=== PATIENT | female | born 1935 | race Caucasian/White ===

== ENCOUNTER 2018-05-09 13:07 | Inpatient (IN) | payer MEDICARE ==
[~2018-05-09] VITALS: Ht 152.4 cm; Wt 74.8 kg
[2018-05-09] VITALS (14 sets, daily range): BP systolic 130–148; BP diastolic 38–60
[2018-05-09] MEDS ORDERED: METFORMIN HCL500 MG PO (13:20)
[2018-05-09] MEDS ORDERED: OXAZEPAM 10MG C10 M1 PO (13:20)
[2018-05-09] MEDS ORDERED: SYNTHROID100 MC1 PO (13:20)
[2018-05-09] MEDS ORDERED: TRAZODONE HCL50 MG PO (13:21)
[2018-05-09] MEDS ORDERED: SIMVASTATIN40 MG PO (13:21)
[2018-05-09 13:33] LABS: HEMATOCRIT 20.1 % (37.0-47.0); MCH 27.8 pg (26.0-34.0); MCHC 33.4 g/dL (28.0-37.0); MCV 83.4 fL (80.0-100.0); MPV 6.5 fl. (7.2-11.1); NUCLEATED RBCS 0 /100WBC; PLATELET COUNT* 137 thou/uL (150-400); RBC 2.41 mil/uL (4.20-5.00); RDW-CV 19.6 % (10.5-14.5); WBC 9.9 thou/uL (4.0-11.0)
[2018-05-09 13:37] LABS: HEMOGLOBIN 6.7 gm/dL (12.0-15.0)
[2018-05-09 13:39] LABS: APTT 23.7 Seconds (25.0-31.3); INR 1.2
[2018-05-09 13:49] LABS: CALCIUM 9.9 mg/dL (8.5-10.1); CREATININE 22.1 mg/dL (0.6-1.3); POTASSIUM 5.9 mmol/L (3.5-5.1)
[2018-05-09 13:54] LABS: ALBUMIN 2.6 g/dL (3.4-5.0); TOTAL BILIRUBIN 0.4 mg/dL (<0.1-1.0); TOTAL PROTEIN 11.4 g/dL (6.4-8.2); TROPONIN-I LEVEL 0.13 ng/mL (<0.06)
[2018-05-09 14:08] LABS: ABSOLUTE EOSINOPHILS 0.4 thou/uL (0.0-0.7); ABSOLUTE LYMPHOCYTES 6.3 thou/uL (0.8-5.3); ABSOLUTE MONOCYTES 0.6 thou/uL (0.0-1.2); ABSOLUTE NEUTROPHILS 2.6 thou/uL (1.6-8.1); ATYPICAL LYMPHS 1 %
[2018-05-09 14:09] LABS: PLATELET ESTIMATE DECREASED
[2018-05-09 14:10] LABS: ANISOCYTOSIS 1+
--- NOTE | 2018-05-09 14:22 | NUR ---
CONSENT SIGNED FOR CENTRAL LINE
[2018-05-09 15:20] LABS: ACETAMINOPHEN < 2 ug/mL (10-30); SALICYLATE 4.3 mg/dL (2.8-20.0)
[2018-05-09 16:14] LABS: URINE BILIRUBIN NEGATIVE (Negative); URINE BLOOD 1+ (Negative); URINE CLARITY CLEAR; URINE COLOR YELLOW; URINE GLUCOSE-RANDOM NEGATIVE (Negative); URINE KETONES NEGATIVE (Negative); URINE LEUKOCYTES-REFLEX NEGATIVE (Negative); URINE NITRITE-REFLEX NEGATIVE (Negative); URINE PROTEIN 2+ (Negative); URINE UROBILINOGEN 0.2 E.U./dl (0.2-1.0)
[2018-05-09 16:21] LABS: AMP/METHAMP Negative (Negative); BARBITURATES Negative (Negative); BENZODIAZEPINES Negative (Negative); COCAINE Negative (Negative); METHADONE Negative (Negative); OPIATES Negative (Negative); PCP Negative (Negative); SQUAMOUS 0-3 Few /LPF (0-3); THC Negative (Negative); URINE RBC 3-10 Few /HPF (0-2); URINE WBC-REFLEX 0-5 Rare /HPF (0-5)
[2018-05-09 16:24] LABS: BACTERIA-REFLEX 1-9 Few /HPF (None Seen); MUCUS None Seen strn/LPF (None Seen)
[2018-05-09 16:25] LABS: AMORPHOUS URATES Many /LPF (None Seen); CASTS None Seen /LPF (None Seen); CRYSTALS None Seen /LPF (None Seen)
[2018-05-09 17:19] LABS: HEMATOCRIT 16.8 % (37.0-47.0); HEMOGLOBIN 5.6 gm/dL (12.0-15.0)
[2018-05-09 17:23] LABS: CALCIUM 8.5 mg/dL (8.5-10.1); MAGNESIUM 2.5 mg/dL (1.8-2.4); PHOSPHORUS* 9.3 mg/dL (2.5-4.9); POTASSIUM 5.5 mmol/L (3.5-5.1)
[2018-05-09 17:29] LABS: CREATININE 19.9 mg/dL (0.6-1.3)
[2018-05-09 18:25] LABS: BE -15.8 mmol/L (-2 to +3); PCO2 28.1 mmHg (35.0-45.0); PO2 107.3 mmHg (75.0-100.0)
[2018-05-09 18:28] LABS: pH 7.202 (7.340-7.450)
[2018-05-09 18:29] LABS: HCO3 10.8 mmol/L (22.0-26.0)
--- NOTE | 2018-05-09 19:42 | NUR ---
PATIENT ADMITTED TO THE UNIT AT 1615. PATIENT AOX4, PLEASANT, COOEPRATIVE. ABLE TO UNDERSTAND AND PARTICIPATE IN CARE PLAN. PATIENT LIVES AT HOME ALONE AND HAS BEEN PROGRESSIVELY WEAKER IN THE LAST TWO WEEKS. PATIENT STATES SHE ATTEMPTED TO USE A CANE AT ONE POINT, BUT WAS UNABLE TO AMBULATE AND HAS FALLEN. STATES THAT SHE HAS BEEN NAUSATED AND HAS HAD DRY HEAVES. STATES SHE WAS UNABLE TO REACH FOOD OR DRINK. PATIENT KIDNEY FUNCTION POOR AT THIS TIME. CREAT 22.1 UPON ARRIVAL, ON LAST CHECK 19.2. LIPASE ALSO ELEVATED. 2L NS BOLUS GIVEN IN THE ER BEFORE RECHECK. DR BARAKAT NOTIFIED WHO ORDERED NS @50 ML/HR AND STERILE WATER WITH 3 AMPS OF BICARB @ 100ML/HR. HE ORDERED REPEAT LABS FOR 2100 AND STATED HE WILL CALL NURSING. BLOOD CONSENT OBTAINED. INFUSING AT THIS TIME FOR HGB OF 5.4 ON LAST CHECK. PATIENT HAS RIGHT IJ CENTRAL LINE. DRESSING SATURATED UPON ARRIVAL TO THE FLOOR. REPLACED DRESSING AND UTILIZED GEL FOAM, HELD PRESSURE FOR 5 MINUTES. APPEARED TO BE DRY, BUT STILL BLEEDING AT THIS TIME, GAUZE IN PLACE. FAST FOOD FRY COOK NOTIFIED. PATIENT'S DPOA (YOU) WHO IS A FRIEND WILL BE OUT OF TOWN THIS WEEK, BUT STATED NURSING CAN CALL HER IF REQUIRED. UPDATED ON PLAN OF CARE. PATIENT AND DPOA AGREEABLE TO PLAN OF CARE AND ALL QUESTIONS WERE ANSWERED.
[2018-05-09 22:38] LABS: HEMATOCRIT 20.1 % (37.0-47.0)
[2018-05-09 22:50] LABS: HEMOGLOBIN 6.7 gm/dL (12.0-15.0)
[2018-05-09 22:55] LABS: CALCIUM 8.6 mg/dL (8.5-10.1); CREATININE 19.6 mg/dL (0.6-1.3); MAGNESIUM 2.6 mg/dL (1.8-2.4); PHOSPHORUS* 9.1 mg/dL (2.5-4.9); POTASSIUM 5.8 mmol/L (3.5-5.1)
[2018-05-10] VITALS (23 sets, daily range): BP systolic 108–148; BP diastolic 35–58
--- NOTE | 2018-05-10 | NUR ---
CALL RECEIVED FROM DR OWENS, ALL LABS REPORTED TO HIM. PER HIS REQUEST SPOKE TO PT ABOUT POSSIBILITY OF DIALYSIS CATHETER PLACEMENT AND STARTING DIALYSIS. PT STATES SHE IS IN AGREEMENT WITH THIS PLAN. THIS WAS REPORTED TO DR OWENS, ORDER RECEIVED TO CONSULT IR FOR TEMP DIALYSIS CATH PLACEMENT FIRST THING IN AM. 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 RECORD REQUEST FAXED TO HIS OFFICE.
[2018-05-10 03:59] LABS: ABSOLUTE EOSINOPHILS 0.1 thou/uL (0.0-0.7); ABSOLUTE LYMPHOCYTES 5.1 thou/uL (0.8-5.3); ABSOLUTE MONOCYTES 0.3 thou/uL (0.0-1.2); ABSOLUTE NEUTROPHILS 2.7 thou/uL (1.6-8.1); BASOPHILS 0.4 %; EOSINOPHILS 0.7 %; HEMATOCRIT 21.5 % (37.0-47.0); HEMOGLOBIN 7.3 gm/dL (12.0-15.0); LYMPHOCYTES 61.8 %; MCH 28.5 pg (26.0-34.0); MCHC 33.7 g/dL (28.0-37.0); MCV 84.4 fL (80.0-100.0); MPV 6.4 fl. (7.2-11.1); NUCLEATED RBCS 0 /100WBC; PLATELET COUNT* 99 thou/uL (150-400); POLYS 33.1 %; RBC 2.55 mil/uL (4.20-5.00); RDW-CV 17.7 % (10.5-14.5); WBC 8.2 thou/uL (4.0-11.0)
[2018-05-10 04:15] LABS: CREATININE 18.8 mg/dL (0.6-1.3); POTASSIUM 5.3 mmol/L (3.5-5.1); TOTAL BILIRUBIN 0.5 mg/dL (<0.1-1.0); TOTAL PROTEIN 8.6 g/dL (6.4-8.2)
--- NOTE | 2018-05-10 06:37 | NUR ---
PATIENT RECIEVED 2 UNITS OF BLOOD THIS SHIFT, TOLERATED WELL. HAD BOWEL MOVEMENT X2. FIRST BOWEL MOVEMENT WAS LARGE, SEMI-LIQUID AND BLACK. SECOND BOWEL MOVEMENT WAS MODERATE IN AMOUNT, LOOSE AND DARK BROWN. FOUL SMELL NOTED IN BOTH BMs. PATIENT HAD BROTH AND APPLE JUICE, TOLERATED WELL. WAS ABLE TO SIT IN CHAIR FOR 10-15 MINS X2. ABLE TO GET SOME SLEEP THROUGHOUT THE NIGHT. PATIENT REFUSED Q2 TURNS AND REPORTED SHE IS COMFORTABLE LAYING ON HER BACK. SCDs TAKEN OFF PER PATIENT REQUEST WELL. VITALS STABLE, CALL LIGHT IN REACH.
--- NOTE | 2018-05-10 11:13 | NUR ---
Pt getting temporary dialysis cath placed earlier when tried to assess, will see later.
--- NOTE | 2018-05-10 13:38 | EKG ---
[place] [address] ELECTROCARDIOGRAM REPORT Name: GLENN GONZALES Room: [address] ADM IN .R.#: [id number] Admission: 05/09/18 Attend Phys: Sunil Vega MD Discharge: Date of : 37 Report #: [id number] THIS REPORT FOR: //name// [facility] ED Test Date: 2018-05-09 Test Time: 14:03:46 Pat Name: GLENN CHRISTIAN Department: Room: [facility] Gender: F Alterations Workroom Clerk: JS STUDENT EMS : 1935 Requested By: Jose E Castrejon Order Number: [id number] MD: Garett Vallejo Measurements Intervals [place] Rate: 68 P: 58 NC: 119 QRS: 3 QRSD: 103 T: 59 QT: 394 QTc: 420 Interpretive Statements Sinus rhythm Borderline short NC interval No previous ECG available for comparison Electronically Signed On 05-10-2018 13:37:57 INFORMATION TECHNOLOGY TECHNICIAN by Garett Vallejo [email or web address] <ELECTRONICALLY SIGNED> By: Garett Vallejo MD, [facility] 05/10/18 1337 D: 12/1402 02 Garett Vallejo MD, FACC /EPI
--- NOTE | 2018-05-10 16:35 | NUR ---
ATTENTION CASE MANAGEMENT: PT EXPRESSED INTREST IN LEARNING OF COMMUNITY RESOURCES WHERE SHE CAN MEET FRIENDS. PT REPORTS SHE LIVED WITH A FREIND FOR SEVERAL YEARS WHO 2 YEARS AGO AND PT FEELS LONELY.
--- NOTE | 2018-05-10 18:52 | NUR ---
PT CONSENTED TO TEMPORARY DIALYSIS CATHETER. PT HAD DIALYSIS TODAY. VSS. AFEBRILE. PT UP TO BSC 2 TIMES. SMALL BM. PT SAT IN RECLINER THIS SHIFT.
[2018-05-10 19:06] LABS: COMPLEMENT-C4 30 mg/dL (14-44); IgA 89 mg/dL (64-422); IgG 1186 mg/dL (700-1600)
[2018-05-10 21:09] LABS: IgM 4708 mg/dL (26-217)
[2018-05-11] VITALS (20 sets, daily range): BP systolic 99–138; BP diastolic 37–61
[2018-05-11 03:44] LABS: ABSOLUTE EOSINOPHILS 0.1 thou/uL (0.0-0.7); ABSOLUTE LYMPHOCYTES 3.8 thou/uL (0.8-5.3); ABSOLUTE MONOCYTES 0.4 thou/uL (0.0-1.2); ABSOLUTE NEUTROPHILS 2.4 thou/uL (1.6-8.1); BASOPHILS 0.3 %; EOSINOPHILS 0.9 %; LYMPHOCYTES 57.9 %; MCH 28.5 pg (26.0-34.0); MCHC 34.7 g/dL (28.0-37.0); MCV 82.1 fL (80.0-100.0); MONOCYTES 5.3 %; MPV 6.4 fl. (7.2-11.1); NUCLEATED RBCS 0 /100WBC; PLATELET COUNT* 85 thou/uL (150-400); POLYS 35.6 %; RBC 2.32 mil/uL (4.20-5.00); RDW-CV 17.7 % (10.5-14.5); WBC 6.6 thou/uL (4.0-11.0)
[2018-05-11 04:07] LABS: ALBUMIN 1.7 g/dL (3.4-5.0); CALCIUM 7.5 mg/dL (8.5-10.1); MAGNESIUM 1.6 mg/dL (1.8-2.4); PHOSPHORUS* 3.9 mg/dL (2.5-4.9); TOTAL BILIRUBIN 0.3 mg/dL (<0.1-1.0); TOTAL PROTEIN 7.6 g/dL (6.4-8.2)
[2018-05-11 04:13] LABS: CREATININE 10.5 mg/dL (0.6-1.3); POTASSIUM 4.2 mmol/L (3.5-5.1)
[2018-05-11 04:15] LABS: HEMOGLOBIN 6.6 gm/dL (12.0-15.0)
--- NOTE | 2018-05-11 08:09 | NUR ---
PT IS ABLE TO COMMUNICATE HER NEEDS TO STAFF EFFECTIVELY. SHE HAS DENIED THE NEED FOR PAIN MEDICATION UP TO THIS TIME. SERA IS PATENT. PT DID RECEIVE HEMODIALYSIS YESTERDAY. PT RECEIVING BLOOD THIS AM.
[2018-05-11 11:25] LABS: HEMATOCRIT 24.3 % (37.0-47.0); HEMOGLOBIN 8.4 gm/dL (12.0-15.0)
--- NOTE | 2018-05-11 12:25 | CON ---
[address] [address] CONSULTATION Name: GLENN GONZALES Room: [address] IN M.R.#: [id number] Admission: 05/09/18 Attend Phys: Sunil Veag MD Discharge: Date of : 36 Report #: [id number] THIS REPORT FOR: //name// CC: Valdez Vega The patient is at [facility] ICU bed 8. REASON FOR CONSULTATION: I am asked to see this 82-year-old female at the request of Dr. Barber for acute kidney injury. CHIEF COMPLAINT: Generalized weakness and dizziness. HISTORY OF PRESENT ILLNESS: The patient has had 2-3 weeks of nausea and vomiting and constipation and decreased urine output. She presented to the ED, was found to have severe laboratory abnormalities with a BUN as high as 214, a creatinine of 22, a hemoglobin of 6.7 and was subsequently admitted. PAST MEDICAL HISTORY: The patient reports that she has been told she has "blood cancer." She chose not to investigate this further. She does not know the details. She was seen by Oncology at [facility]. She stopped taking all of her medications a few months back. She says now she made a mistake, she should have pursued this and found out exactly what was wrong and pursue treatment. PAST MEDICAL HISTORY: Positive for hypothyroidism, prediabetes, insomnia. Non-Hodgkin lymphoma. She has had a right lumpectomy, cholecystectomy and tonsillectomy. FAMILY HISTORY: No renal diseases. No pertinent family history at her age of 82. SOCIAL HISTORY: She does not use tobacco, no alcohol, no recreational drugs. She has an advance directive and wishes to be a DNR. ALLERGIES: Not known to any medications. HOME MEDICATIONS: She was not taking anything. She said she stopped her meds few months ago. REVIEW OF SYSTEMS: HEENT: No recent changes in vision or hearing. CARDIAC: Denies any chest pain. PULMONARY: Denies shortness of air. GASTROINTESTINAL: She has had nausea and vomiting. She has had decreased intake. She has had constipation. GENITOURINARY: She has acute kidney injury and decreased urine output. HEMATOLOGIC AND LYMPHATIC:: History of non-Hodgkin lymphoma, [place] [address] CONSULTATION Name: GONZALESGLENN Yovanny Room: [address]#: [id number] Admission: 05/09/18 Attend Phys: Sunil Vega MD Discharge: Date of : 36 Report #: [id number] history of breast cancer. She has had a lumpectomy, but I do not know if this was malignant or not. She has the new onset of "blood cancer." She is very anemic. Her other hematologic findings indicate normal white cells and platelets of 99,000. MUSCULOSKELETAL: Weakness. ENDOCRINE: Prediabetes, not hypothyroid. PSYCHIATRIC: Negative. NEUROLOGIC: No TIA, CVA, Parkinson disease or seizure disorder. Other 14-point review of systems is as above. PHYSICAL EXAMINATION: GENERAL: She is awake, alert, hungry. She has responded well to fluids and that her BUN and creatinine are still quite high, have come down from 214-182 since yesterday, and her creatinine has come down from 22-18.8. In addition, she has put out about 1200 mL of urine output. HEENT: Atraumatic, normocephalic. Pupils do react to light. Her conjunctivae are quite pale. NECK: Supple. CHEST: Generally clear. HEART: S1, S2, no rubs. ABDOMEN: Soft, positive bowel sounds. EXTREMITIES: Show no edema. She has 2+ femoral pulses distally. Extremities perfused. NEUROLOGIC: Cranial nerves, sensory, motor appear to be at her baseline. LABORATORY DATA: At present shows the above-mentioned renal findings. Her blood pressure is much better and stable at 120/44 to 145/53. Her potassium is 5.3, sodium 133, CO2 17, anion gap 18, glucose 132. Liver functions are not increased. White count 8200, hemoglobin up to 7.3, hematocrit 21.5. She has had a chest x-ray that shows no acute cardiopulmonary process. She has had a CT scan of the head that also shows no acute process and renal ultrasound shows normal-sized kidneys with diffuse increased renal parenchyma echogenicity and no hydronephrosis. IMPRESSION: 1. Acute kidney injury, not certain of this cause. She was quite volume depleted on admission, though this seems an excessive response to that. She does not appear to have been hypotensive. I do not know if she has any malignant infiltration of her kidneys versus acute tubular necrosis versus acute interstitial nephritis versus some glomerular process. 2. Uremia secondary to above. 3. Profound anemia. 4. Thrombocytopenia. 5. Generalized weakness, likely related to abnormal laboratories as well. 6. Questionable new diagnosis of "blood cancer," need more details on this. 7. History of prior non-Hodgkin lymphoma. I do not know how long ago. [address] [address] CONSULTATION Name: GLENN GONZALES Room: [address] IN M.Antonio.#: [id number] Admission: 05/09/18 Attend Phys: Sunil Vega MD Discharge: Date of : 36 Report #: [id number] 8. Hypothyroidism. 9. "Prediabetes." 10. Constipation. 11. Recent nausea and vomiting. PLAN: She has been placed for dialysis by Dr. Nawaf bellamy [email or web address]. She will have a 2-hour treatment. Meanwhile, we will begin investigations as to possible cause of acute renal failure. Orders are written. We will follow with you. <ELECTRONICALLY SIGNED> By: Desiree Hartman MD 05/11/18 1225 1202 [id number] Hartman MD /nt
[2018-05-11 13:19] LABS: SMEAR FOR EOSINOPHILS No Eosinophils Seen
[2018-05-12] VITALS (8 sets, daily range): BP systolic 100–132; BP diastolic 31–64
[2018-05-12 05:52] LABS: HEMATOCRIT 22.3 % (37.0-47.0); HEMOGLOBIN 7.7 gm/dL (12.0-15.0); MCH 29.1 pg (26.0-34.0); MCHC 34.6 g/dL (28.0-37.0); MPV 6.8 fl. (7.2-11.1); NUCLEATED RBCS 0 /100WBC; PLATELET COUNT* 80 thou/uL (150-400); RBC 2.65 mil/uL (4.20-5.00); RDW-CV 17.2 % (10.5-14.5); WBC 6.8 thou/uL (4.0-11.0)
[2018-05-12 05:58] LABS: ALBUMIN 1.6 g/dL (3.4-5.0); CALCIUM 8.1 mg/dL (8.5-10.1); CREATININE 10.8 mg/dL (0.6-1.3); MAGNESIUM 1.6 mg/dL (1.8-2.4); PHOSPHORUS* 4.3 mg/dL (2.5-4.9); POTASSIUM 4.2 mmol/L (3.5-5.1); TOTAL BILIRUBIN 0.3 mg/dL (<0.1-1.0); TOTAL PROTEIN 7.6 g/dL (6.4-8.2)
--- NOTE | 2018-05-12 06:32 | NUR ---
progressing towards goals. vss. plan for bone biopsy today. tele status.
--- NOTE | 2018-05-12 09:04 | NUR ---
MAGNESIUM 1.6 THIS AM. ASKED NEPHROLOGY IF THEY WOULD LIKE IT REPLACED. PER NEPHROLOGY "LEAVE IT ALONE". FLUIDS CHANGED PER NEPHROLOGY, ORDERS FOLLOWED. PT A/O X'S 4. VSS. AFEBRILE. PT TO HAVE BONE MARROW BIOPSY AND DIALYSIS TODAY. WILL CONTINUE PLAN OF CARE.
[2018-05-12 09:29] LABS: ABSOLUTE LYMPHOCYTES 4.2 thou/uL (0.8-5.3); ABSOLUTE MONOCYTES 0.5 thou/uL (0.0-1.2); PLATELET ESTIMATE DECREASED
[2018-05-12 11:08] LABS: ANTI-DNA SCREEN 2 IU/mL (0-9); ANTI-RNP 0.2 AI (0.0-0.9)
--- NOTE | 2018-05-12 11:10 | NUR ---
CHART REVIEWED, SPOKE WITH PT. PT ALERT AND ORIENTED AND ABLE TO ANSWER ALL QUESTIONS. PT LIVES ALONE, SHE SAID UP UNTIL ABOUT A MONTH AGO SHE HAD SOMEONE COME IN ONCE A WEEK TO HELP WITH CLEANING, COOKING, ETC. SHE SAID SHE HAS FELT SO POORLY THE LAST MONTH THAT SHE WAS JUST EATING LIGHT FOODS THAT WERE AVAILABLE. SHE SAID SHE HAS NO FAMILY HERE IN THE AREA, SHE HAD A GOOD FRIEND NAHID MURPHY ([phone]) WHO HELPS HER, SHE INITIALLY SAID NAHID WAS HER DPOA, AND THE ONE SHE WOULD WANT TO MAKE HEALTHCARE DECISIONS FOR HER. COPY OF DPOA FROM 2017 ON OLD CHART, IT NAMES OKSANA PRETTYON AND SHAY JERONIMOSARAH HER AGENTS. DISCUSSED WITH PT, SHE SAID OKSANA CONDE IS HER CHEMICAL PLANT MANAGER AND SHAY MIX IS HER SISTER IN [place], [place]. ASKED HER IF SHE WANTED TO COMPLETE A NEW ADVANCE DIRECTIVE NAMING NAHID MURPHY, SHE SAID NOT RIGHT NOW, SHE WANTS TO LEAVE IT OKSANA CONDE HER DPOA. SHE DOES NOT KNOW HIS PHONE NUMBER AND I WAS UNABLE TO LOCATE A PHONE NUMBER FOR HIM. COPY OF ADVANCE DIRECTIVE ON CURRENT CHART. DISCUSSED ROLE OF CASE MGT, BRIEFLY DISCUSSED DISCHARGE OPTIONS, UNSURE WHAT PT WILL NEED AT DISCHARGE AT THIS TIME. PT HAD HEMODIALYSIS ON THURSDAY AND WILL HAVE AGAIN TODAY. PT SCHEDULED FOR BONE MARROW BIOPSY TODAY. CASE MGT TO CONTINUE TO FOLLOW.
--- NOTE | 2018-05-12 14:55 | NUR ---
PT STATED SHE WAS RECEIVING HOME HEALTH WEEKLY AND ASKED THAT THEY BE CONTACTED AND NOTIFIED SHE IS IN HOSPITAL. PT UNABLE TO RECALL NAME OF HOME HEALTH AGENCY. PT REPORTS HER FRIEND NAHID MURPHY [phone] WOULD KNOW NAME OF HOME HEALTH AGENCY. CASE MANAGEMENT NOTIFIED. PT REPORTS SHE DOES NOT HAVE HER GARAGE PRAKASH, HER FRIEND NAHID MURPHY HAS IT, AND SHE IS CONCERNED ABOUT HOW TO GET IN HER HOME UPON DISCHARGE. NAHID KATHERINE CALLED AND VOICE MESSAGE LEFT ABOUT CONCERN.
--- NOTE | 2018-05-12 15:52 | NUR ---
PT'S SISTER IS PATRIA MORGAN. PHONE NUMBER IS [phone].
[2018-05-12 16:09] LABS: IgA 81 mg/dL (64-422); IgG 1008 mg/dL (700-1600)
--- NOTE | 2018-05-12 17:05 | NUR ---
PT'S HUNTING SALES ASSOCIATE CRESENCIO NOTIFIED PT TRANSFERED TO ROOM 210. PT GIVEN PRN ZOFRAN PRIOR TO TRANSFER. PT ALSO GIVEN PRN TYLENOL FOR HEADACHE AND SCHEDULED ATIVAN FOR CIWA OF 7. PT IN TEARS AT TIMES.
--- NOTE | 2018-05-12 17:50 | NUR ---
PT C/O OF NAUSEA. PRN ZOFRAN ADMININSTERED PER JUL. PT REPORTS SHE USES A HOME HEALTH AGENCY ONCE A WEEK AND WOULD LIKE THEM NOTIFIED THAT SHE IS IN HOSPITAL. PT UNSURE OF AGENCY NAME. YOU REPORTS SHE BELIEVES SHE IS FROM AN INDEPENDENT [employer]. YOU STATED SHE WILL BE HERE ON 05/13/18 AND GIVE NUMBER. PT CONCERNED ABOUT HOME KEYS AND STATED YOU HAS KEYS. PER YOU, " I'M WORRIED ABOUT HER AND WONDERING IF SHE IS FORGETFUL. BECAUSE SHE TOLD ME TO LEAVE HER KEYS IN HER CAR AND LEAVE HER FRONT DOOR UNLOCKED." "HER KEYS ARE IN THE IGNITION TO HER CAR AND THE CAR IS UNLOCKED".
[2018-05-12 21:06] LABS: IgM 4282 mg/dL (26-217)
[2018-05-13 01:49] VITALS: BP 113/50
[2018-05-13 02:06] LABS: HEPATITIS B SURFACE AG Negative (Negative)
[2018-05-13 03:49] VITALS: BP 133/49
[2018-05-13 04:44] LABS: CALCIUM 7.6 mg/dL (8.5-10.1); MAGNESIUM 1.6 mg/dL (1.8-2.4); PHOSPHORUS* 3.1 mg/dL (2.5-4.9); POTASSIUM 4.2 mmol/L (3.5-5.1)
[2018-05-13 04:45] LABS: CREATININE 6.1 mg/dL (0.6-1.3)
--- NOTE | 2018-05-13 06:05 | NUR ---
REPORT RECEIVED FROM OFF GOING SHIFT, AND CARE ASSUMMED. RESP REG AND UNALBORED SKIN W/D INDUSTRIAL RENDERER INTACT WITH ALARMS SET. PT STATES NAUSEA HAS IMPROVED. VSS AND AND NO ACUTE CHANGES DURING SHIFT. PT NPO AFTER MIDNIGHT FORBIOSPY, AND PT VERBALIZED UNDERSTANDING. FOLEYT INTACT AND PATENT DRAINING YELLOW URINE TO BEDSIDE BAG. WILL CONTINUE TO MONITOR
[2018-05-13 13:07] LABS: GLOBULIN TOTAL 5.7 g/dL (2.2-3.9); M-SPIKE Note: g/dL (Not Observed)
[2018-05-13 13:07] LABS: KAPPA FREE LIGHT CHAINS 95.8 mg/L (3.3-19.4); LAMBDA FREE LIGHT CHAINS 1270.1 mg/L (5.7-26.3)
--- NOTE | 2018-05-13 17:12 | NUR ---
PT CARE ASSUMED AFTER REPORT. ASSESSMENTS COMPLETE. SR ON MONITOR. PT HAD BONE MARROW BIOPSY TODAY. LARGE BAND AID TO LOWER BACK. PT CONTINUES TO FEEL WEAK. UP WITH STB TO BEDSIDE COMMODE. PT PASSED GAS. SERA TO DD. PT REFUSES TURNS. STATES THAT SHE IS ABLE TO POSITION HERSELF NEEDED. DENIES PAIN. SLOWLY PROGRESSING TOWARDS GOALS.
[2018-05-13 19:49] VITALS: BP 139/48
[2018-05-13 23:49] VITALS: BP 117/48
[2018-05-14 03:49] VITALS: BP 106/53
[2018-05-14 04:42] LABS: HEMATOCRIT 22.6 % (37.0-47.0); HEMOGLOBIN 7.4 gm/dL (12.0-15.0); MCH 28.6 pg (26.0-34.0); MCV 86.8 fL (80.0-100.0); MPV 6.6 fl. (7.2-11.1); RBC 2.6 mil/uL (4.20-5.00); RDW-CV 17.3 % (10.5-14.5); WBC 5.9 thou/uL (4.0-11.0)
[2018-05-14 04:54] LABS: CALCIUM 7.9 mg/dL (8.5-10.1); POTASSIUM 4.1 mmol/L (3.5-5.1)
[2018-05-14 04:55] LABS: CREATININE 7.5 mg/dL (0.6-1.3)
--- NOTE | 2018-05-14 05:19 | NUR ---
REPORT RECEIVED FROM OFF GOING SHIFT AND CARE ASSUMMED. RESP REG AND UNALBORED SKIN W/D NO ACUTE DISTRESS NOTED. PT STATES SHE HAD A PRETTY GOOD DAY BUT WAS HOPING TO GET A GOOD NIGHTS SLEEP. MONITORS INTACT WITH ALARMS SET. VSS AND NO ACUTE CHANGES DURING SHIFT. ZAMORA INTACT AND PATENT DRAINING YELLOW URINE TO BEDSIDE BAG. PT SLEPT BETTER THIS SHIFT. WILL CONTINUE TO MONITOR.
[2018-05-14 09:49] VITALS: BP 126/54
[2018-05-14 11:49] VITALS: BP 127/52
[2018-05-14 13:49] VITALS: BP 136/57
--- NOTE | 2018-05-14 15:12 | NUR ---
PT CARE ASSUMED AFTER REPORT. ASSESSMENTS COMPLETE. SR ON MONITOR. PT TRANSFERED TO ROOM 225. REPORT GIVEN TO KINA MOON. PT UPSET WITH THIS NURSE FOR HAVING HER TRANSPORTED BY WHEELCHAIR TO ROOM 225. ASKED THIS NURSE IF SHE STILL HAD ANY PT RIGHTS. I EXPLAINED TO HER THAT SHE HAS RIGHTS BUT IT IS NOT A GOOD THING TO STAY IN BED AND NOT GET ANY MOVEMENT. PT HAS REFUSED TURNS ALL DAY AND CHOSE TO REPOSITION HERSELF SHE WANTED. PT EDUCATED OF THE POSIBILTY OF PRESSURE ULCERS FORMING. PT CONTINUED TO REFUSE.
--- NOTE | 2018-05-14 15:23 | NUR ---
VSS, ASSUMED CARE OF PT FROM ICU. I AGREE WITH ICU FINDINGS AND ASSESSMENTS, PLACED PT ON HEART MONITOR, SHE IS ON RA, TRACING SR ON THE MONIOTOR, ZAMORA IN PLACE, CALL LIGHT IN REACH AND FALL PRECAUTIONS IN PLACE. WILL FOLLOW WITH PLAN OF CARE.
[2018-05-14 20:00] VITALS: BP 145/65
[2018-05-15] VITALS: BP 144/66
[2018-05-15 04:00] VITALS: BP 150/59
--- NOTE | 2018-05-15 06:58 | NUR ---
PATIENT RESTED IN BED, NO ACUTE CHANGES. PATIENT DID NOT SHOW SIGNS OF DISTRESS. FALL PRECAUTIONS IN PLACE, CALL LIGHT WITH IN REACH, HOURLY ROUNDING OBSERVED, BED ALARM ON. PATIENT EDUCATED ON THE IMPORTANCE OF Q TWO TURNS.
[2018-05-15 08:00] VITALS: BP 143/61
[2018-05-15 12:00] VITALS: BP 168/96
--- NOTE | 2018-05-15 12:05 | NUR ---
VSS, ASSUMED CARE THIS AM, ASSESSMENT PERFORMED AND CHARTED, FALL PRECATIONS IN PLACE AND CALL LIGHT IN REACH, PT IS A&O4, ON RA, TRACING SR ON THE MONITOR, DENIES ANY PAIN, SHE STATES THAT SHE FEELS CONSTIPATED, PT GOAL IS TO WORK WITH PT/OT, WALK IN ROOM AND MAYBE IN THE HALLS, AND HAVE A BM. PT HAS A ZAMORA IN PLACE WHICH IS DRAINING AND IN PLACE. WILL FOLLOW WITH PLAN OF CARE.
[2018-05-15 13:59] LABS: CALCIUM 8.6 mg/dL (8.5-10.1); CREATININE 8.3 mg/dL (0.6-1.3); POTASSIUM 4.7 mmol/L (3.5-5.1)
[2018-05-15 16:00] VITALS: BP 150/64
[2018-05-15 22:00] VITALS: BP 135/74
[2018-05-16] VITALS: BP 122/60
[2018-05-16 04:00] VITALS: BP 134/62
--- NOTE | 2018-05-16 05:31 | NUR ---
PATIENT RESTED IN BED. PATIENT DID COMPLAIN OF SOA, O2 SAT WAS AT 91%. PATIENT REPOSITIONED AND PLACED ON 1 LITER, O2 RETURN TO 97%. PATIENT CURRENTLY DENIES SOA. PATIENT DOES NOT APPEAR TO BE IN DISTRESS. FALL PRECAUTIONS IN PLACE, CALL LIGHT WITH IN REACH, HOURLY ROUNDING OBSERVED, BED ALARM ON. PATIENT EDUCATED OF THE IMPORTANCE OF Q 2 TURNS.
[2018-05-16 06:00] LABS: ALBUMIN 1.4 g/dL (3.4-5.0); CALCIUM 8.1 mg/dL (8.5-10.1); PHOSPHORUS* 2.4 mg/dL (2.5-4.9); POTASSIUM 4.3 mmol/L (3.5-5.1)
[2018-05-16 06:01] LABS: CREATININE 5.9 mg/dL (0.6-1.3)
--- NOTE | 2018-05-16 08:07 | CON ---
[address] [address] CONSULTATION Name: GLENN GONZALES Room: [address] IN ..#: [id number] Admission: 05/09/18 Attend Phys: Sunil Vega MD Discharge: Date of : 36 Report #: [id number] THIS REPORT FOR: //name// CC: Valdez Vega DATE OF SERVICE: 05/11/2018 PRIMARY CARE PHYSICIAN: Valdez Preston MD REASON FOR CONSULTATION: Severe anemia and history of non-Hodgkin lymphoma. HISTORY OF PRESENT ILLNESS: The patient is a very pleasant 82-year-old female who gives a history of having non-Hodgkin lymphoma diagnosed in 2004. The patient was treated and diagnosed at [facility] with 6 cycles of "chemotherapy" at that time. The patient had involvement of lymphoma in her breast and the lymph nodes in the oropharynx, among other areas and went into complete remission. Her last visit with her oncologist was several years ago. The patient is currently admitted to the hospital with decreased appetite and nausea and weakness for the last several weeks, worsening over the last few days. The patient was found to have BUN as high as 214 and creatinine of 22 with hemoglobin of 6.7. The patient had to start hemodialysis yesterday and has some decrease in her creatinine. Her hemoglobin dropped to 6.6 yesterday and she required 1 unit of PRBCs. Her WBC count today was 6.6 with repeat hemoglobin and hematocrit of 8.4 and 24.3 respectively with platelet count of 85. Her MCV was 82.1 and MCHC was 34.7. The patient's iron level yesterday was 136 with iron saturation of 148. Vitamin B12 level was 2180 and folate was 95 with TSH elevated at 3.837. The patient had mild troponin leak at 0.13. Her LFTs were otherwise unremarkable along with her electrolyte levels. Her total calcium level was mildly decreased to 7.5 with total protein level of 7.6. PT and PTT on admission were 12.0 and 23.7 with fibrinogen level of 267. Urinalysis showed 2+ proteins. Immunoglobulin levels sent by Nephrology showed immunoglobulin M level to be significantly elevated at 4708 with normal IgG and IgA levels. Hematology/Oncology was consulted due to these hematologic abnormalities. The patient says that she has had mild degree of improvement after her hemodialysis yesterday and after the blood transfusion. She does not complain of any headaches, dizziness, nausea, vomiting, constipation, diarrhea, chest pain or palpitations at this time. PAST MEDICAL HISTORY: 1. Diabetes. 2. Hypothyroidism. 3. [place] [address] CONSULTATION Name: GLENN GONZALES Room: [address] IN ..#: [id number] Admission: 05/09/18 Attend Phys: Sunil Vega MD Discharge: Date of : 36 Report #: [id number] 4. History of non-Hodgkin lymphoma diagnosed and treated in 2004 at [facility]. PAST SURGICAL HISTORY: 1. Right-sided lumpectomy. 2. Cholecystectomy. 3. Tonsillectomy. FAMILY HISTORY: No significant family history for cancers or other hematologic disorders. PERSONAL HISTORY: No recreational drug use. The patient is a never smoker, did not use any alcohol. ALLERGIES: No known drug allergies. CURRENT MEDICATIONS: 1. Protonix 40 mg p.o. daily. 2. Levothyroxine 0.1 mg p.o. daily. 3. Trazodone 50 mg p.o. at bedtime. 4. Sodium chloride for IV hydration. 5. PhosLo 667 mg p.o. with meals. 6. Zofran 4 mg IV p.r.n. q.4 hours. 7. Hydralazine 5 mg IV q.6 hours as needed. 8. Albuterol inhalation every 6 hours. 9. Tylenol 650 mg p.o. q.6 hours as needed. REVIEW OF SYSTEMS: A 13-point review of systems were obtained, which showed negative for any findings of those discussed in HPI. PHYSICAL EXAMINATION: VITAL SIGNS: Temperature today was 36.8 degrees centigrade, pulse was 77 beats per minute, respiratory rate was 17 breaths per minute, blood pressure 123/59 mmHg with pulse ox 96% on room air. GENERAL: Awake, alert, oriented x 3, appears lethargic. HEENT: EOMI/PERRL. LYMPHATICS: No lymphadenopathy in the neck or supraclavicular areas. Right IJ dialysis catheter in place. CHEST: Clear bilaterally with no added sounds. CARDIOVASCULAR: Regular rate and rhythm. ABDOMEN: Soft, bowel sounds positive. MUSCULOSKELETAL: No significant arthropathy. Gait normal. NEUROLOGIC: No evidence of any focal neurological deficit. INTEGUMENTARY: No evidence of rash of the skin changes. ASSESSMENT AND PLAN: The patient is a very pleasant 82-year-old [address] [address] CONSULTATION Name: GLENN GONZALES Room: [address] IN .Antonio.#: [id number] Admission: 05/09/18 Attend Phys: Sunil Vega MD Discharge: Date of : 36 Report #: [id number] female who gives a history of prior diagnosis and treatment of non-Hodgkin lymphoma at [facility] in 2004. The patient is currently admitted to the hospital with significant anemia and evidence of florid renal failure requiring initiation of hemodialysis yesterday. The patient does have evidence of increase in her IgM levels. I will plan to proceed with evaluation for serum protein electrophoresis, immunofixation and serum free light chain levels. We will also plan to request a bone marrow biopsy for further evaluation of her anemia. I will plan to check MMA, reticulocyte count and erythropoietin levels today as well. We will follow the results of the above blood tests and bone marrow biopsy results as they become available and we will discuss these with the patient. Possibilities include recurrence of her non-Hodgkin lymphoma in the bone marrow versus Waldenstrom's macroglobulinemia. Her CT scan of the abdomen did show some shotty lymphadenopathy, which could be related to her underlying disorder. These findings were discussed with the patient and all of her questions were answered to her satisfaction. Thank you for allowing us to participate in the care of this pleasant patient. <ELECTRONICALLY SIGNED> By: Malik Carty MD 05/16/18 0807 1559 [id number] Warner MD /nt
[2018-05-16 12:46] VITALS: BP 126/49
[2018-05-16 14:15] LABS: HEMATOCRIT 22.7 % (37.0-47.0); HEMOGLOBIN 7.6 gm/dL (12.0-15.0); MCH 28.9 pg (26.0-34.0); MCHC 33.2 g/dL (28.0-37.0); MCV 86.8 fL (80.0-100.0); MPV 6.5 fl. (7.2-11.1); RBC 2.62 mil/uL (4.20-5.00); RDW-CV 17.8 % (10.5-14.5); WBC 5.6 thou/uL (4.0-11.0)
[2018-05-16 15:01] LABS: CHLORIDE 104.4 mmol/L (98-107); POTASSIUM 4.6 mmol/L (3.5-5.1)
[2018-05-16 15:02] LABS: BUN 44.4 mg/dL (7-18); CREATININE 6.2 mg/dL (0.6-1.3); GLUCOSE 118.8 mg/dL (70-99)
[2018-05-16 15:03] LABS: ALBUMIN 1.6 g/dL (3.4-5.0); MAGNESIUM 1.4 mg/dL (1.8-2.4); PHOSPHORUS* 2.9 mg/dL (2.5-4.9)
[2018-05-16 15:59] VITALS: BP 132/82
[2018-05-16 20:00] VITALS: BP 151/58
--- NOTE | 2018-05-16 21:07 | NUR ---
CALL TO DOCTOR BELTRAN REGARDING PATIENT'S MAGINESIUM LEVEL, NO NEW ORDERS.
[2018-05-17] VITALS: BP 129/66
[2018-05-17 04:00] VITALS: BP 144/75
--- NOTE | 2018-05-17 05:45 | NUR ---
PATIENT RESTED IN BED, NO ACUTE CHANGES. PATIENT EDUCATED OF THE IMPORTANCE OF Q TWO TURNS. PATIENT DID NOT SHOW SIGNS OF DISTRESS. FALL PRECAUTIONS IN PLACE, CALL LIGHT WITH IN REACH, HOURLY ROUNDING OBSERVED, BED ALARM ON.
--- NOTE | 2018-05-17 08:00 | NUR ---
REC'D REPORT FROM NOC RN, ASSUMED CARE OF PT APPROX 0730. PT IS IN DIALYSIS NOW. RHYTHM STRIPS MONITORED AND IN CHART.SR.
--- NOTE | 2018-05-17 10:40 | NUR ---
REC'D CALL FROM JEWELRY COATER. PT HAS COMPLETED DIALYSIS. PT TRANSPORTED VIA BED AND NURSING STAFF TO UNIT. WILL CONSUME BOXED LUNCH. A&O X4, ABLE TO COMMUNIICATE NEEDS TO STAFF. NO C/O PAIN OR DISTRESS.
[2018-05-17 11:58] VITALS: BP 140/60
[2018-05-17 12:00] VITALS: BP 121/47
--- NOTE | 2018-05-17 13:43 | NUR ---
Nutrition: Pt seen for LOS. Admitted with ARF. Had dialysis. Renal diet ordered. Pt stated she is not expecting to go home on renal diet. Wt: 174#. Labs: BUN 44, cr 6.2, GFR 6, alb 1.6, prealb 16.9, Hgb 7.6. We briefly discussed low Na diet. Pt stated she's never had renal issues before. Mild risk.
--- NOTE | 2018-05-17 13:58 | NUR ---
CM went to introduce self and discuss disposition, Pt is unsure at this time what she will need at dc, Pt is hopeful to be able to return home. Pt stated that at this time, it is still not clear if she will need outpt dialysis set up. Pt asked CM to store her car keys and garage overhead garage door hanger with security. Security to come and get items. CM updated Pt's nurse. Following.
[2018-05-17 16:05] VITALS: BP 147/45
[2018-05-17 20:00] VITALS: BP 138/60
[2018-05-18] VITALS: BP 146/59
[2018-05-18 04:00] VITALS: BP 141/57
[2018-05-18 04:31] LABS: CALCIUM 8.1 mg/dL (8.5-10.1); CREATININE 5.9 mg/dL (0.6-1.3); POTASSIUM 4.1 mmol/L (3.5-5.1)
--- NOTE | 2018-05-18 05:11 | NUR ---
PATIENT RESTED IN BED, NO ACUTE CHANGES. PATIENT DOES APPEAR TO BE IN DISTRESS. PATIETN DENIES SOA. FALL PRECAUTIONS IN PLACE, CALL LIGHT WITH IN REACH, HOURLY ROUNDING OBSERVED, BED ALARM ON.
[2018-05-18 08:18] VITALS: BP 125/61
--- NOTE | 2018-05-18 11:00 | NUR ---
REC'D REPORT FROM NOC RN, ASSUMED CARE OF PT APPROX 0730. A&O X4, ABLE TO COMMUNICATE NEEDS TO STAFF. CUT OFF WORKER IN PLACE, SR. O2 SATS 97% ON RA. ASSESSMENT COMPLETE. MEDS PER JUL. CALL LIGHT WITHIN REACH. HOURLY ROUNDING FOR SAFETY AND PT NEEDS.
[2018-05-18 12:25] VITALS: BP 138/64
[2018-05-18 16:00] VITALS: BP 136/57
--- NOTE | 2018-05-18 18:57 | NUR ---
PT HAS C/O SOA, PT SPO2 97-99% ON RA. PT WAS PLACED ON 2L PER NC FOR COMFORT. PT DUE TO GET DIALYSIS TOMORROW. WILL PASS ON TO NOC SHIFT
[2018-05-18 20:00] VITALS: BP 141/58
[2018-05-19] VITALS: BP 116/45
--- NOTE | 2018-05-19 03:59 | NUR ---
PATIENT RESTED IN BED, NO ACUTE CHANGS. PATIENT DOES NOT APPEAR TO BE IN DISTRESS. FALL PRECAUTIONS IN PLACE, CALL LIGHT WITH IN REACH, HOURLY ROUNDING OBSERVED, BED ALARM. PATIENT OF THE IMPORTANCE OF Q TWO TURNS.
[2018-05-19 04:00] VITALS: BP 128/47
[2018-05-19 07:10] LABS: CREATININE 7.1 mg/dL (0.6-1.3); POTASSIUM 4.5 mmol/L (3.5-5.1)
[2018-05-19 08:00] VITALS: BP 135/50
--- NOTE | 2018-05-19 10:10 | NUR ---
0730 ASSUMED CARE OF PATIENT. SEE DOCUMENTED ASSESSMENT. PT IS ON ROOM AIR BUT IS SOA WITH EXERTION. PLAN IS FOR DIALYSIS TODAY
[2018-05-19 12:00] VITALS: BP 111/48
--- NOTE | 2018-05-19 14:16 | NUR ---
TO DIALYSIS PER BED.
[2018-05-19 18:08] VITALS: BP 153/45
--- NOTE | 2018-05-19 18:17 | NUR ---
1800 BACK FROM DIALYSIS WITH REMOVAL OF 2 LITERS FLUID. PATIENT HAS PROGRESSED TODAY WITH BEING UP AND AMBULATING. AWAITING BIOPSY RESULTS. APPETITE GOOD. NO VISITORS BUT HAS MANY PHONE CALLS.
--- NOTE | 2018-05-19 18:31 | NUR ---
DIALYSIS NURSE REPORTS POOR FUNCTION OF HEMODIALYSIS CATHETER AND THAT HE SPOKE WITH DR ZENG WHO RECOMMENDS PLACMENT OF TUNNELED DIALYSIS CATHETER
[2018-05-19 20:35] VITALS: BP 127/50
[2018-05-20] VITALS: BP 135/48
[2018-05-20 04:00] VITALS: BP 131/51
--- NOTE | 2018-05-20 08:22 | NUR ---
PT IS ABLE TO COMMUNICATE HER NEEDS TO STAFF EFFECTIVELY. SHE HAS DENIED THE NEED FOR PAIN MEDICATION UP TO THIS TIME. ZAMORA IS PATENT. PT HAD DIALYSIS RUN YESTERDAY. IR CONSULTED FOR PLACEMENT OF A TUNNELED DIALYSIS CATH SOON.
[2018-05-20 09:03] VITALS: BP 114/68
--- NOTE | 2018-05-20 09:15 | NUR ---
CM spoke with Pt, Pt reports feeling better, still hopes to be able to dc home once medically stable. CM asked Pt if she wanted to complete a new DPOA of , Pt stated that she decided that she just wants to keep her current DPOA. Pt continues to be on daily dialysis. Following.
[2018-05-20 11:51] VITALS: BP 134/48
--- NOTE | 2018-05-20 13:33 | NUR ---
PT OFF UNIT TO IR.
--- NOTE | 2018-05-20 15:08 | NUR ---
PT RETURN FROM IR WITH TNNELED RIGHT IJ DIALYSIS CATHETER.
[2018-05-20 16:00] VITALS: BP 119/57
--- NOTE | 2018-05-20 16:34 | NUR ---
CM was able to speak with Pt's DPOA, Michael Franco, . Plan for Pt to dc to acute rehab today, updated DPOA. housing liaison to contact Pt's nurse for dc orders. Updated
[2018-05-20] MEDS ORDERED: DULCOLAX5 MG PO (17:06)
[2018-05-20] MEDS ORDERED: TYLENOL325 MG PO (17:06)
[2018-05-20] MEDS ORDERED: AMBIEN 5 MG TABL5 M1 PO (17:06)
[2018-05-20] MEDS ORDERED: BENADRYL25 MG PO (17:07)
[2018-05-20] MEDS ORDERED: ACCUNEB SO1.25 MG/1 INH (17:08)
[2018-05-20] MEDS ORDERED: MIRALAX17 GM PO (17:09)
[2018-05-20] MEDS ORDERED: PROTONIX40 M1 PO (17:09)
[2018-05-20] MEDS ORDERED: SENNA8.6 MG PO (17:09)
[2018-05-20 17:10] VITALS: BP 119/57
[2018-05-20] MEDS ORDERED: TRAZODONE HCL50 MG PO (17:10)
--- NOTE | 2018-05-20 17:26 | NUR ---
PT WILL DISCHARTGE TO REHAB THIS EVENING. WILL CALL REPORT AND TRANSFER PT.
--- NOTE | 2018-05-20 17:50 | NUR ---
REPORT CALLED TO REHAB [facility]. TRANSPORT VIA WHEEL CHAIR.
--- NOTE | 2018-05-21 13:50 | OP ---
[address] [address] OPERATIVE REPORT Name: GLENN GONZALES Room: [address]#: [id number] Admission: 05/09/18 Attend Phys: Sunil Vega MD Discharge: 05/20/18 Date of : 36 Report #: [id number] THIS REPORT FOR: //name// CC: Valdez Vega DATE OF SERVICE: 05/20/2018 PREOPERATIVE DIAGNOSIS: End-stage renal disease. POSTOPERATIVE DIAGNOSIS: End-stage renal disease. PROCEDURE: 1. Right internal jugular tunneled dialysis catheter placement. 2. Removal internal jugular tunneled dialysis catheter, right IJ. SURGEON: Malik Angulo MD. APPRENTICE PAINTER HAND: Gui Foss DO. COMPLICATIONS: None. ESTIMATED BLOOD LOSS: 10 mL. SPECIMENS: Right IJ temporary catheter removed in its entirety. INDICATION FOR PROCEDURE: The patient is a very pleasant 82-year-old white female who had to initiate dialysis during this admission. She has a temporary dialysis catheter in the right internal jugular vein. We planned to place a tunneled dialysis catheter for her to go home with. Informed consent was obtained from the patient with risks including but not limited to bleeding, infection, need for further surgery, pain, , heart attack, stroke, pneumothorax. The patient understood these risks and was agreeable to proceed. DESCRIPTION OF PROCEDURE: The patient was taken to the angio suite, placed in supine position. Timeout was performed. Right neck was prepped and draped in usual sterile fashion. I used ultrasound to evaluate the vein. There was noted to be thrombus around the catheter. There were 2 catheters in the right jugular vein. There was no room to access the vein. For this reason, I made a decision to exchange out over a wire. The temporary dialysis catheter had been prepped into the field. We infused 10 mL of 1% lidocaine on the right chest up to the access point. We tunneled our GlidePath catheter from the anterior chest wall back up to the neck access point. I then used a wire to exchange out the old catheter and placed the sheath for the GlidePath catheter. We then flooded the GlidePath catheter down the sheath. I used fluoroscopy throughout this to assure correct positioning. I removed the peel-away sheath from [place] [address] OPERATIVE REPORT Name: GLENN GONZALES Room: [address]#: [id number] Admission: 05/09/18 Attend Phys: Sunil Vega MD Discharge: 05/20/18 Date of : 36 Report #: [id number]. Fluoroscopy confirmed no kinking of the catheter. Both ports flushed without difficulty. We closed the neck incision with a Monocryl stitch and secured the catheter to the anterior chest wall the same. I packed the catheter with 1000 unit per mL heparin. The patient tolerated the procedure well and was taken alert and awake to recovery room in good condition. The catheter was dressed in standard fashion. <ELECTRONICALLY SIGNED> By: Raffy Esquivel DO 05/21/18 1350 [id number] Angulo MD /nt
== END 2018-05-20 17:48 | DRG 673 ==
LOC: M.ERS 13:07 → M.ICU 14:44 → M.2W 14:44 → M.TBA-ER 14:44 → M.ICU 16:19 → M.2W 05-14 15:12
PROVIDERS: Family Medicine; Internal Medicine; Internal Medicine Nephrology; ADMIT Family Medicine
PROC: 30233N1 Transfusion of Nonautologous Red Blood Cells into Peripheral Vein, Percutaneous Approach (ICD-10-PCS; principal; 2018-05-09)
PROC: 02HV33Z Insertion of Infusion Device into Superior Vena Cava, Percutaneous Approach (ICD-10-PCS; 2018-05-10)
PROC: 5A1D70Z Performance of Urinary Filtration, Intermittent, Less than 6 Hours Per Day (ICD-10-PCS; 2018-05-10)
PROC: B548ZZA Ultrasonography of Superior Vena Cava, Guidance (ICD-10-PCS; 2018-05-10)
PROC: 07DR3ZX Extraction of Iliac Bone Marrow, Percutaneous Approach, Diagnostic (ICD-10-PCS; 2018-05-13)
PROC: 5A1D70Z Performance of Urinary Filtration, Intermittent, Less than 6 Hours Per Day (ICD-10-PCS; 2018-05-19)
PROC: 0JPT3XZ Removal of Tunneled Vascular Access Device from Trunk Subcutaneous Tissue and Fascia, Percutaneous Approach (ICD-10-PCS; 2018-05-20)
PROC: 02PAX3Z Removal of Infusion Device from Heart, External Approach (ICD-10-PCS; 2018-05-20)
PROC: 0JH63XZ Insertion of Tunneled Vascular Access Device into Chest Subcutaneous Tissue and Fascia, Percutaneous Approach (ICD-10-PCS; 2018-05-20)
PROC: 02HV33Z Insertion of Infusion Device into Superior Vena Cava, Percutaneous Approach (ICD-10-PCS; 2018-05-20)
DX: N17.2 Acute kidney failure with medullary necrosis (principal); E43 Unspecified severe protein-calorie malnutrition; G93.41 Metabolic encephalopathy; K85.90 Acute pancreatitis without necrosis or infection, unspecified; C85.10 Unspecified B-cell lymphoma, unspecified site; E87.5 Hyperkalemia; D64.9 Anemia, unspecified; E03.9 Hypothyroidism, unspecified; E11.22 Type 2 diabetes mellitus with diabetic chronic kidney disease; G47.00 Insomnia, unspecified; D69.6 Thrombocytopenia, unspecified; K59.00 Constipation, unspecified; E78.00 Pure hypercholesterolemia, unspecified; N18.6 End stage renal disease; R59.9 Enlarged lymph nodes, unspecified; E83.42 Hypomagnesemia; Z90.49 Acquired absence of other specified parts of digestive tract; Z79.899 Other long term (current) drug therapy; Z68.32 Body mass index [BMI] 32.0-32.9, adult

== ENCOUNTER 2018-05-20 17:16 | Inpatient (IN) | payer MEDICARE ==
[~2018-05-20] VITALS: Ht 157.5 cm; Wt 67.6 kg
--- NOTE | ~2018-05-20 | PLAN ---
[address] [address] REHAB UNIT PLAN OF CARE Name: GLENN GONZALES Room: [address] IN [facility].#: [id number] Admission: 05/20/18 Attend Phys: Nereyda Moyer DO Discharge: Date of : 36 Report #: [id number] THIS REPORT FOR: //name// CC: Valdez Moyer This is an 82-year-old female admitted to inpatient rehabilitation to facilitate safe discharge home, status post acute hospitalization beginning on 05/09/2018 after she had 2-3 days of increased weakness, nausea, vomiting, alterations in activities of daily living with some ongoing debility. She does have end-stage renal disease on dialysis 3 times a week as well as a monoclonal B cell lymphoma. Medical prognosis is fair. Rehabilitation prognosis is fair. Estimated length of stay is 14-16 days with discharge disposition to the home setting where she does live alone. She does have supportive friends in the area. She lives in a house, two steps to enter, no railing. Previous level of function was modified independent to independent with activities of daily living. Current level of function is standby assist to max assist depending on therapy, activity and time of day. She is ambulating 100 feet with front-wheeled walker, contact guard to standby assist. She does have mild impairment of comprehension, expression, social interaction, problem solving and memory. Physical therapy will see the patient 60-90 minutes per day, 5 days per week, working on upper and lower body strength, balance, coordination, navigation. Occupational therapy will work with the patient 60-90 minutes per day, 5 days per week, working on upper and lower body strength, balance, coordination, navigation, bathing, dressing, and toileting. Speech and language pathology will work with the patient 30-90 minutes per day, 5 days per week, working on memory, cognition, expression and comprehension. She will maintain a low endurance protocol due to her medical complexity and her end-stage renal disease with need for dialysis 3 times a week. This is an overall plan of care, it may change from time to time. We will team weekly and make changes to plan of care as needed. By: [id number] Moyer DO /sonal
--- NOTE | ~2018-05-20 | H ---
[address] [address] HISTORY AND PHYSICAL Name: GLENN GONZALES Room: [address] IN [facility].#: [id number] Admission: 05/20/18 Attend Phys: Nereyda Moyer, Discharge: Date of : 36 Report #: [id number] THIS REPORT FOR: //name// CC: Valdez Moyer DATE OF SERVICE: 05/20/2018 HISTORY OF PRESENT ILLNESS: This is an 82-year-old female admitted to inpatient rehabilitation to facilitate safe discharge home status post acute hospitalization beginning on 05/09/2018 after EMS brought her to [facility] with nausea, vomiting and increased weakness over the past several days. She does have a B-cell lymphoma, end-stage renal disease and had been having increased debility with alterations in activities of daily living. She does do dialysis 3 times per week. She does live in a house, 2 steps to enter, no handrail. She does live alone. She does have some supportive friends in the area. No significant changes since the preadmission screening. Previous level of function was modified independent to independent with activities of daily living. Current level of function is minimum assistance to maximum assistance depending on therapy, activity and time of day. She is ambulating 100 feet with a front-wheeled walker, contact guard standby assist. She does have mild to moderate impairment of comprehension, expression, social interaction, problem solving and memory. Estimated length of stay is 14-16 days with discharge disposition independently to the home setting. PAST MEDICAL HISTORY: Hypothyroid, prediabetes with a random glucose of 107, insomnia, constipation, severe anemia with a hemoglobin unknown at this time, nausea and vomiting, debility, non-Hodgkin lymphoma, acute renal failure, end-stage renal disease, history of chemotherapy, hyperkalemia, elevated troponin, IgM lambda paraproteinemia, thrombocytopenia. PAST SURGICAL HISTORY: Cholecystectomy, tonsillectomy, lumpectomy of the right breast. ALLERGIES: No known drug allergies. SOCIAL HISTORY: Previous tobacco smoker. No alcohol or illicit drug use. FAMILY HISTORY: Heart disease and cancer. REVIEW OF SYSTEMS: A 14-point review of systems is done and is negative except as mentioned in HPI, specifically no fever, chest pain, shortness of breath, abdominal pain or distention. MEDICATIONS: Reviewed and reconciled by myself [place] [address] HISTORY AND PHYSICAL Name: GLENN GONZALES Room: [address] IN [facility]#: [id number] Admission: 05/20/18 Attend Phys: Nereyda Moyer DO Discharge: Date of : 36 Report #: [id number] PHYSICAL EXAMINATION: GENERAL: Alert, oriented, in no apparent distress. VITAL SIGNS: Reviewed and are stable. HEENT: Head atraumatic, normocephalic. Pupils equal, round, reactive. ABDOMEN: Soft, nontender, nondistended. NEUROLOGIC: Cranial nerves 2-12 are grossly intact with no focal neuro deficits, 5/5 strength in the bilateral upper and lower extremities. SKIN: Warm and dry. No rashes or lesions noted. ASSESSMENT: 1. Significant debility post acute hospitalization with end-stage renal disease, on dialysis 3 times a week. 2. Monoclonal B cell lymphoma. 3. Multiple medical comorbidities requiring acute daily medical care. PLAN: 1. Admission to inpatient rehabilitation. 2. PT, OT, speech, language, case management, nursing and HIMS to make evaluations and recommendations. 3. Plan of care is pending. 4. We will team weekly and make changes to the plan of care as needed. 5. Medications were reviewed and reconciled by myself and are available in the MAR. By: 1707 [id number] Moyer DO /sonal
[~2018-05-20 17:16] MED LIST: ACCUNEB SO1.25 MG/1 INH; AMBIEN 5 MG TABL5 M1 PO; BENADRYL25 MG PO; DULCOLAX5 MG PO; METFORMIN HCL500 MG PO; MIRALAX17 GM PO; OXAZEPAM 10MG C10 M1 PO; PROTONIX40 M1 PO; SENNA8.6 MG PO; SIMVASTATIN40 MG PO; SYNTHROID100 MC1 PO; TRAZODONE HCL50 MG PO; TYLENOL325 MG PO
[2018-05-20 18:36] VITALS: BP 155/57
[2018-05-20 20:40] VITALS: BP 141/57
[2018-05-21 03:38] LABS: MCHC 33.4 g/dL (28.0-37.0); MCV 86.8 fL (80.0-100.0); MPV 6.2 fl. (7.2-11.1); NUCLEATED RBCS 0 /100WBC; PLATELET COUNT* 141 thou/uL (150-400); RBC 2.23 mil/uL (4.20-5.00); WBC 5.8 thou/uL (4.0-11.0)
[2018-05-21 03:55] LABS: CALCIUM 8.3 mg/dL (8.5-10.1); CREATININE 7.2 mg/dL (0.6-1.3); POTASSIUM 4.3 mmol/L (3.5-5.1)
[2018-05-21 04:54] LABS: HEMOGLOBIN 6.5 gm/dL (12.0-15.0)
[2018-05-21 04:55] LABS: HEMATOCRIT 19.3 % (37.0-47.0)
[2018-05-21 05:31] LABS: ABSOLUTE EOSINOPHILS 0.2 thou/uL (0.0-0.7); ABSOLUTE LYMPHOCYTES 4.1 thou/uL (0.8-5.3); ABSOLUTE MONOCYTES 0.2 thou/uL (0.0-1.2); ABSOLUTE NEUTROPHILS 1.4 thou/uL (1.6-8.1); ATYPICAL LYMPHS 3 %; PLATELET ESTIMATE DECREASED; TOXIC GRANULATION 1+
[2018-05-21 05:32] LABS: ANISOCYTOSIS 1+; HYPOCHROMASIA 1+; POIKILOCYTOSIS 1+; POLYCHROMASIA Occasional
--- NOTE | 2018-05-21 05:38 | NUR ---
ASSUMED PT CARE AT 1930. PT IN BED, ALERT AND ORIENTED X4 HAVING ARRIVED EARLIER FROM TELEMETRY. ADMISSION DATABASE COMPLETED, ADMISSION PAPERWORK SIGNED. PT ADMITTED WITH DIAGNOSIS OF DEBILITY/ESRD. RIGHT TRIPLE LUMEN IJ FLUSHES EASILY. PT HAS NEWLY PLACED DIALYSIS PORT TO RIGHT CHEST. ZAMORA TO DD, DRAINING LIGHT YELLOW URINE. NO STOOL THIS SHIFT. PER PT REQUEST PRN TRAZADONE, AMBIEN AND MELATONIN AT HS. TYLENOL ONCE THIS SHIFT FOR NECK PAIN. PT SLEPT WELL OVERNIGHT. CRITICAL LAB REPORTED TO DR. HERNANDEZ, HGB 6.[address] HERNANDEZ ORDERED REPEAT H&H, IF HGB RESULT LESS THAN 7.0 THEN INFUSE ONE UNIT OF PRBC. CALL LIGHT AND FREQUENTLY USED ITEMS WITHIN REACH. HOURLY ROUNDING IN PROGRESS, WILL CONTINUE TO MONITOR.
[2018-05-21 06:56] LABS: HEMATOCRIT 18.5 % (37.0-47.0); HEMOGLOBIN 6.2 gm/dL (12.0-15.0)
[2018-05-21 07:33] VITALS: BP 135/51
--- NOTE | 2018-05-21 16:10 | NUR ---
SW attempted to meet pt 3 times today but pt was in therapies 2 of the times (once that was not on the schedule board; SW did coordinate to try to plan a time to meet with pt) and another time pt was in dialysis and another pt was in dialysis room as well. SW to complete inpt rehab assessment on Thursday. From previous record, Pt lives alone and has DPOAs Michael Franco who is her workers compensation defense attorney [phone] and Luly Banegas who is pt sister who lives in [place]. Pt is new to dialysis; SW to plan to coordinate new OP dialysis for dc. Pt also recommended to have Life Alert at dc, SW to provide resources. SW to continue to follow to assist with safe dc planning.
--- NOTE | 2018-05-21 16:39 | NUR ---
BLOOD VERIFIED AT BEDSIDE IN DIALYSIS. DIALYSIS NURSE GIVING BLOOD DURING TREATMENT.
--- NOTE | 2018-05-21 17:54 | NUR ---
PATIENT HAS BEEN A/O X 4 THIS SHIFT. MEDICATED FOR NECK SORENESS FROM TUNNELED DIALYSIS CATHETER WITH GOOD AFFECT. PATIENT PARTICIPATED IN ALL THERAPIES THIS SHIFT. PATIENT UP SBA WITH GB AND WALKER. AMBULATED TO DINING ROOM FOR LUNCH AND DINNER. PATIENT'S ZAMORA PATENT AND DRAINING, HAD 250ML OUT THIS SHIFT. SEEN BY RENAL THIS SHIFT. PATIENT UP TO BR WITH SBA, GB AND WALKER, ABLE TO DO OWN [facility] [employer] MANAGEMENT. PATIENT HAD DIALYSIS THIS SHIFT, HAD 2.5L TAKEN OFF, HAD 1 UNIT OF BLOOD GIVEN DURING DIALYSIS AND TOLERATED WELL. TAKING FLUIDS WELL AND TOLERATING DIET WELL. BLOOD SUGARS WNL. PATIENT CONTINUES ON FALL PRECAUTIONS, BED/CHAIR ALARMS USED. CALL LIGHT WITHIN REACH. WILL CONTINUE WITH PLAN OF CARE.
[2018-05-21 19:15] VITALS: BP 128/53
--- NOTE | 2018-05-21 19:15 | NUR ---
RESTING QUIETLY IN BED AND WATCHING TV. DENIES DISCOMFORT. ZAMORA TO DD WITH CLEAR/YELLOW URINE. RIGHT IJ INTACT.
--- NOTE | 2018-05-22 05:26 | NUR ---
SAT UP IN RECLINER FROM ABOUT 1999 TO 2144. RESTED QUIETLY. HOURLY ROUNDING IN PROGRESS.
[2018-05-22 07:30] VITALS: BP 133/56
--- NOTE | 2018-05-22 14:38 | NUR ---
ASSUMED CARE AT 0730. ALERT ORIENTED PLEASANT COOPERATIVE. HX OF DEBILITY ESRD. PT. TRANSFERS WITH SBA G BELT WALKER FROM BED TO AMBULATE TO BR AND HAD A LARGE BM. ZAMORA CATH PATENT WITH FANTA URINE TO DD BAG. PT. ON STRICT I AND O. DENIES PAIN OR CONCERNS. HAS IV CATHETER RT. NECK AREA. USES CALL LIGHT APPROPRIATELY FOR ASSISTANCE. PARTICIPATING IN THERAPIES THIS A.M. NO MEDS GIVEN ALL WERE STOOL SOFTENER AND LAXATIVES. TO FOR LUNCH MEAL FEEDS SELF.
--- NOTE | 2018-05-22 15:06 | NUR ---
PT. TAKEN TO DIALYSIS PER BED AT 1500. DENIES REQUESTS OR CONCERNS.
[2018-05-22 16:17] LABS: HEMATOCRIT 25.7 % (37.0-47.0)
[2018-05-22 16:23] LABS: HEMOGLOBIN 8.6 gm/dL (12.0-15.0)
[2018-05-22 20:20] VITALS: BP 115/42
--- NOTE | 2018-05-22 20:20 | NUR ---
PATIENT EATING SUPPER AT SHIFT CHANGE. LATE SUPPER DUE TO HEMODIALYSIS. DENIES DISCOMFORT. AMBULATED FROM THE DINING ROOM TO HER ROOM WITH SBA, GAITBELT, WALKER. CHOSE TO SIT UP IN THE RECLINER. ZAMORA TO DEPENDENT DRAINAGE WITH YELLOW URINE. PATIENT ON STRICT I/O.
[2018-05-23 04:34] LABS: HEMATOCRIT 22.4 % (37.0-47.0); HEMOGLOBIN 7.6 gm/dL (12.0-15.0); MCH 29.7 pg (26.0-34.0); MCHC 34.2 g/dL (28.0-37.0); MCV 86.8 fL (80.0-100.0); MPV 6.5 fl. (7.2-11.1); RBC 2.58 mil/uL (4.20-5.00); WBC 5.7 thou/uL (4.0-11.0)
[2018-05-23 05:04] LABS: CALCIUM 8.3 mg/dL (8.5-10.1); POTASSIUM 3.6 mmol/L (3.5-5.1)
[2018-05-23 05:10] LABS: CREATININE 3.9 mg/dL (0.6-1.3)
--- NOTE | 2018-05-23 05:28 | NUR ---
RESTED QUIETLY. AWAKENED EARLY FOR EARLY AM BLOOD DRAW BUT RETURNED TO SLEEP. NO COMPLAINTS VOICED. HOURLY ROUNDING IN PROGRESS.
[2018-05-23 07:30] VITALS: BP 133/53
[2018-05-23 09:12] LABS: % SATURATION 22 % (20-39); IRON 31 ug/dL (50-175)
--- NOTE | 2018-05-23 14:25 | NUR ---
ASSUMED CARE AT 0730. ALERT ORIENTED PLEASANT COOPERATIVE, HX OF ESRD AND DEBILITY. NEPHROLOGY ROUNDED AND ORDERED LABS AND D/C ZAMORA BUT CONTINUE STRICT I AND O. ZAMORA DCD AT 0900 WITH 75CCS URINE. PT. TRANSFERS WITH SBA G BELT WALKER AND AMBULATES TO DR FOR MEALS APPETITE GOOD FEEDS SELF. DENIES PAIN OR CONCERNS. USES CALL LIGHT APPROPRIATELY FOR ASSISTANCE. IV CATHETER RT. NECK AREA. PT. DID SPONGE BATH INDEPENDENTLY AND DRESSED THIS AFTERNOON RESTED IN BED AT INTERVALS, DID A SESSION WITH P.T. THIS A.M. NO VOIDS YET AT 1330. FRIEND NAHID HERE VISITING AT 1400 IN PTS. ROOM.
--- NOTE | 2018-05-23 19:18 | NUR ---
HOURLY ROUNDING COMPLETED THIS SHIFT. NO VOID THIS SHIFT.
[2018-05-23 21:50] VITALS: BP 128/68
--- NOTE | 2018-05-24 01:25 | NUR ---
ASSUMED CARE @ 1914-05/23-THURSDAY.SITS IN RECLINER W/ LE'S UP.WATCHING TV.CHAIR ALARM ALREADY ON @ 1914.SBA FOR ALL TRANSFERS & TOILETING.HOB UP IN BED.WANTS ONLY SIDERAILS X2 UP.WANTS ONLY LIGHT ON IN BATHROOM & DOOR CLOSED @ NIGHT.BED ALARM PUT ON 2199.REQUESTED 3 MEDS @ HS-DESYREL 100 MG,AMBIEN 5 MG & MELATO- BETTIE 5 MG-ALL GIVEN @ 2217.ON HOURLY ROUNDS.
--- NOTE | 2018-05-24 05:54 | NUR ---
SLEPT LATE @ 2300 BUT SLEPT GOOD ALL NIGHT.REFUSED HS SNACK.BRP W/ SBA X3. VOIDED ONLY 8 ML @ 0300.THREE PORTS JUGULAR CENTRAL LINE FLUSHED EACH W/ 10 ML NS @ 0325.ONLY WHITE PORT DOES NOT HAVE BLOOD RETURN & WILL NOT FLUSH.
[2018-05-24 07:49] VITALS: BP 147/57
--- NOTE | 2018-05-24 14:38 | NUR ---
ASSUMED CARE AT 0730. ALERT ORIENTED PLEASANT COOPERATIVE. HX OF DEBILITY AND ESRD. TRANSFERS WITH SBA G BELT WALKER AND AMBULATES TO BR. NO VOID EARLY A.M.. BUT DID VOID AT 1035 250 CCS YELLOW URINE IN SPECIPAN. DR. GONCALVES HERE ORDERS RECEIVED. IJ RT. JUGULAR PATENT FLUSHES WELL. HAS TESSIO FOR DIALYSIS RT. CHEST. DENIES PAIN OR CONCERNS. PARTICIPATING IN THERAPIES THROUGHOUT THE DAY. SITTING IN RECLINER AFTER THERAPIES WITH BLES ELEVATED. APPETITE GOOD FEEDS SELF TAKES MEDS WITHOUT DIFFICULTY. TO FOR LUNCH MEAL AMBULATORY.
[2018-05-24 19:17] VITALS: BP 151/63
--- NOTE | 2018-05-25 01:21 | NUR ---
ASSUMED CARE @ 1909-06/24-THURSDAY.BRP W/ SBA @ THIS TIME.THAN SAT IN RECLINER W/ LE'S UP.EDEMA-+3 PITTING LEFT FOOT & LEFT ANKLE.+2 PITTING EDEMA-RIGHT FOOT & RIGHT ANKLE.SEE PAIN MANAGEMENT @ 2011.3 PORTS RIGHT JUGULAR CATHETERS HAS GOOD BLOOD RETURN @ 2134 & FLUSHES GOOD.SBA FOR ALL TOILETING & TRANSFERS. HOB UP IN BED.BED ALARM PUT ON @ 2199.EACH LE ELEVATED ON A PILLOW.WANTS ONLY BATHROOM LIGHT ON ALL NIGHT & DOOR CLOSED.PRN HS MEDS OF AMBIEN 5 MG,MELATO- BETTIE 5 MG & DESYREL 100 MG -ALL THREE PILLS TAKEN @ 2200.SEE PAIN MANAGEMENT @ 2011 FOR LEFT FOOT PAIN.ON HOURLY ROUNDS.
[2018-05-25 04:15] LABS: HEMATOCRIT 21.3 % (37.0-47.0); HEMOGLOBIN 7.2 gm/dL (12.0-15.0)
[2018-05-25 04:39] LABS: ALBUMIN 1.8 g/dL (3.4-5.0); CALCIUM 8.5 mg/dL (8.5-10.1); PHOSPHORUS* 3.8 mg/dL (2.5-4.9); POTASSIUM 3.8 mmol/L (3.5-5.1)
[2018-05-25 04:48] LABS: CREATININE 7.7 mg/dL (0.6-1.3)
--- NOTE | 2018-05-25 05:16 | NUR ---
BLOOD DRAWN FROM CENTRAL LINE @ 0320 FOR LAB WORKS.SLEPT LATE @ 2300 & SLEEPING GOOD ALL NIGHT.BRP W/ SBA X2.VOIDED 100 ML EACH TIME.REFUSED HS SNACK.FOR DIALYSIS TODAY-THURSDAY.
[2018-05-25 05:38] LABS: CALCIUM 8.3 mg/dL (8.5-10.1); CREATININE 7.7 mg/dL (0.6-1.3); PHOSPHORUS* 3.9 mg/dL (2.5-4.9)
[2018-05-25 07:59] VITALS: BP 129/60
--- NOTE | 2018-05-25 16:26 | NUR ---
SW met with pt to follow up and in preparation for team conference tomorrow. OFELIA also spoke with pt MELODY Rodriguez at [phone]. Pt lives at home alone and has a friend in the [facility] but pt expressed concern for getting groceries for home at [place]. SW discussed private duty options and will provide a more in detail referral/resource information. Also following for arranging new OP dialysis and will provide life alert info/resource.
[2018-05-25 20:22] VITALS: BP 127/46
--- NOTE | 2018-05-26 01:06 | NUR ---
ASSUMED CARE @ 1932-05/25-THURSDAY.AWAKE IN BED W/ HOB UP W/ EACH LE UP ON A PILLOW.WANTS ONLY SIDERAILS X2 UP,LIGHT ON IN BATHROOM ALL NIGHT & DOOR CLOSED.WANTS TO SIT IN RECLINER @ 2019.CHAIR ALARM PUT ON @ 2019. 3 PORTS RIGHT JUGULAR CENTRAL LINE FLUSHED W/ NS @ 2099.WHITE PORT-CLOTTED.BOTH BLUE & BROWN PORTS HAD BLOOD RETURN & FLUSHED.TOOK ONLY PRN MELATONIN 5 MG & DESYREL 100 MG TABS @ 2202.DID NOT WANT TO TAKE AMBIEN W/ THESE 2 PILLS. ON HOURLY ROUNDS.AERODYNAMICS TEACHER DOING ODD HOUR ROUNDS.
--- NOTE | 2018-05-26 05:24 | NUR ---
SLEPT LATE SINCE 2300.CALLED @ 0312-REQUESTING ANOTHER MELATONIN DOSE. INSTEAD,PRN TYLENOL 2 TABS GIVEN ORAL @ 0312.BLOOD DRAW FROM CENTRAL LINE @ 0407 FOR LAB.CALLED FOR PRN ANXIETY PILL.PRN BENADRYL 25 MG GIVEN @ 0355. TOOK ALL APPLE JUICE HS SNACK MIXED W/ HS MIRALAX.BRP W/ SBA X3.
[2018-05-26 08:00] VITALS: BP 124/47
--- NOTE | 2018-05-26 16:24 | NUR ---
SW met with pt to review team conference summary and plan for pt to remain on rehab unit one more week with team to reassess pt length of stay during team conference next Thursday with possible dc next 06/03. SW to continue to follow and assist with new dialysis arrangements, life alert resource, private duty resources, etc. OFELIA called pt friend and MELODY Rodriguez who did not answer so SW left detailed VM message and requested call back with any questions or concerns.
--- NOTE | 2018-05-26 16:53 | NUR ---
ASSUMMED CARE OF PT AT 0730, PT ALERT AND ORIENTED, PT TRANSFERS WITH SBA, GB WALKER, TAKING FOOD AND FLUIDS WELL, DENIES PAIN, DENIES NAUSEA, ORDER OBTAINED TO DISCONTINUE IJ LINE, DISCONTINUED WITH LINE INTACT, PARTICIPATED IN ALL THERAPIES, HOURLY ROUNDING COMPLETED, ASSESSMENT COMPLETE, WILL CONTINUE TO MONITOR.
[2018-05-26 20:23] VITALS: BP 129/49
--- NOTE | 2018-05-27 05:21 | NUR ---
ASSUMED PT CARE AT 1930. PT ALERT AND ORIENTED X4, POLITE AND COOPERATIVE WITH CARES. PT TRANSFERS WITH SBA, GAIT BELT AND WALKER, UP TO BATHROOM TO VOID. DENIES PAIN. DRESSING TO FORMER IJ SITE C/D/I. DIALYSIS PORT TO RIGHT UPPER CHEST, DRESSING INTACT. PT TO HAVE DIALYSIS TODAY. PER PT EDEMA TO FEET AND ANKLES IS IMPROVED, SHE STATED SHE COULD GET HER SHOES ON. USES CALL LIGHT APPROPRIATELY. CALL LIGHT AND FREQUENTLY USED ITEMS WITHIN REACH. HOURLY ROUNDING IN PROGRESS, WILL CONTINUE TO MONITOR.
[2018-05-27 07:54] VITALS: BP 124/41
[2018-05-27 11:44] LABS: CALCIUM 8.7 mg/dL (8.5-10.1); PHOSPHORUS* 3.9 mg/dL (2.5-4.9); POTASSIUM 4.3 mmol/L (3.5-5.1)
[2018-05-27 11:46] LABS: CREATININE 6.3 mg/dL (0.6-1.3)
--- NOTE | 2018-05-27 16:45 | NUR ---
AM ASSESSMENT AND VITAL SIGNS COMPLETED DOCUMENTED. PT CONTINUES TO WORK WITH THERAPIES AND CONTINUES TO MAKE PROGRESS. DIALYSIS PLANNED LATER TODAY. PT IS MOD I TO STAND BY ASSIST WITH TRANSFERS AND AMBULATION. NO C/O DISCOMFORT THIS SHIFT. FALL PRECAUTIONS AND HOURLY ROUNDING CONTINUE.
[2018-05-27 21:40] VITALS: BP 141/41
--- NOTE | 2018-05-28 05:13 | NUR ---
ASSUMED PT CARE WHEN SHE RETURNED FROM DIALYSIS AT 2144. PT ALERT AND ORIENTED X4, POLITE AND COOPERATIVE WITH CARES. PT TRANSFERS WITH SBA, GAIT BELT AND WALKER, UP TO BATHROOM TO VOID. DENIES PAIN. DIALYSIS PORT TO RIGHT UPPER CHEST, DRESSING DRY AND INTACT. EDEMA TO BLE IMPROVED. PT REQUESTING MOM THIS MORNING. USES CALL LIGHT APPROPRIATELY. CALL LIGHT AND FREQUENTLY USED ITEMS WITHIN REACH. HOURLY ROUNDING IN PROGRESS, WILL CONTINUE TO MONITOR.
[2018-05-28 07:00] VITALS: BP 112/41
--- NOTE | 2018-05-28 14:41 | NUR ---
SW faxed referral information for OP dialysis arrangements to [facility]; SW will continue to follow to ensure placement of pt at dialysis clinic at [facility]. SW met with pt to update on working on dialysis admissions as well as provide the life alert resource and private duty resources. SW to continue to follow to assist with safe dc planning; reteam with possible dc 06/03.
--- NOTE | 2018-05-28 14:47 | NUR ---
ASSUMED CARE AT 0730. ALERT ORIENTED, PLEASANT AND COOPERATIVE. HX OF ESRD AND DEBILITY. TRANSFERS WITH SBA G BELT WALKER AND AMBULATES TO DR FOR MEALS. FEEDS SELF AND TAKES MEDS WITHOUT DIFFICULTY. DENIES PAIN OR CONCERNS. USES CALL LIGHT APPROPRIATELY FOR ASSISTANCE. PARTICIPATING IN THERAPIES OTHERWISE IN RECLINER WITH BLES ELEVATED. VOIDS AT INTERVALS X 2 TODAY BUT IS ON DIALYSIS 3 X WEEK. EDEMA LOWER EXTREMETIES IMPROVING.
[2018-05-28 20:00] VITALS: BP 122/41
[2018-05-29 04:18] LABS: HEMATOCRIT 21.6 % (37.0-47.0); HEMOGLOBIN 7.2 gm/dL (12.0-15.0); MCHC 33.3 g/dL (28.0-37.0); MPV 6.2 fl. (7.2-11.1); RBC 2.48 mil/uL (4.20-5.00); RDW-CV 16.8 % (10.5-14.5); WBC 6.4 thou/uL (4.0-11.0)
[2018-05-29 04:25] LABS: CALCIUM 8.8 mg/dL (8.5-10.1); CREATININE 5.7 mg/dL (0.6-1.3); PHOSPHORUS* 4.3 mg/dL (2.5-4.9); POTASSIUM 4.8 mmol/L (3.5-5.1)
--- NOTE | 2018-05-29 05:16 | NUR ---
ASSUMED PT CARE AT 1930. PT ALERT AND ORIENTED X4, POLITE AND COOPERATIVE WITH CARES. SITTING UP IN RECLINER WITH LEGS ELEVATED AT SHIFT CHANGE. HX OF ESRD AND DEBILITY. TRANSFERS WITH SBA, GAIT BELT AND WALKER. UP TO BATHROOM TO VOID. STOOL X1 THIS SHIFT. DENIES PAIN. PT TO HAVE DIALYSIS TODAY. SWELLING TO BLE IMPROVED. USES CALL LIGHT APPROPRIATELY. CALL LIGHT AND FREQUENTLY USED ITEMS WITHIN REACH.
[2018-05-29 08:13] VITALS: BP 118/60
--- NOTE | 2018-05-29 17:05 | NUR ---
ASSUMMED CARE OF PT AT 0730, PT ALERT AND ORIENTED, PT DENIES PAIN, TRANSFERS WITH SBA, GB WALKER, TAKING FOOD AND FLUIDS WELL, VOID PER TOILET, PARTICIPATED IN ALL THERAPIES, HOURLY ROUNDING COMPLETED ASSESSMENT COMPLETE, TO DIALYSIS AT 1430, WILL CONTINUE TO MONITOR.
[2018-05-29 18:15] VITALS: BP 129/68
[2018-05-29 19:08] VITALS: BP 125/49
[2018-05-29 19:15] VITALS: BP 125/49
--- NOTE | 2018-05-29 19:20 | NUR ---
AMBULATED TO THE BATHROOM WITH GAITBELT AND SBA. COMPLAINED OF ABDOMINAL CRAMPING WHICH WAS RELIEVED AFTER AMBULATED AROUND THE ROOM FOR A SHORT PERIOD.
--- NOTE | 2018-05-30 05:40 | NUR ---
RESTED SOUNDLY. NO COMPLAINTS VOICED. HOURLY ROUNDING IN PROGRESS.
[2018-05-30 08:24] VITALS: BP 126/67
--- NOTE | 2018-05-30 16:57 | NUR ---
ASSUMMED CARE OF PT AT 0730, PT ALERT AND ORIENTED, UP WITH SBA GB AND WALKER, VOIDS PER TOILET, LARGE LOOSE BM X 2 THIS SHIFT, PT DENIES PAIN, DIALYSIS ACCESS IN LEFT CHEST INTACT, TAKING FOOD AND FLUIDS WELL, TO DININGROOM FOR LUNCH AND DINNER, PT UP IN RECLINER AT INTERVALS THRUOUT DAY, AMBULATED HALLWAYS, HOURLY ROUNDING COMPLETED, ASSESSMENT COMPLETE, WILL CONTINUE TO MONITOR.
--- NOTE | 2018-05-30 19:25 | NUR ---
SITTING UP IN RECLINER. DENIES DISCOMFORT. CALL LIGHT WITHIN REACH.
[2018-05-30 19:30] VITALS: BP 135/47
[2018-05-31 04:28] LABS: HEMATOCRIT 21.4 % (37.0-47.0); HEMOGLOBIN 7.1 gm/dL (12.0-15.0); MCH 28.7 pg (26.0-34.0); MCHC 33.2 g/dL (28.0-37.0); MCV 86.5 fL (80.0-100.0); MPV 6.2 fl. (7.2-11.1); NUCLEATED RBCS 0 /100WBC; PLATELET COUNT* 208 thou/uL (150-400); RBC 2.48 mil/uL (4.20-5.00); RDW-CV 16.3 % (10.5-14.5); WBC 6.9 thou/uL (4.0-11.0)
--- NOTE | 2018-05-31 05:36 | NUR ---
HAD DIFFICULTY GETTING TO SLEEP DESPITE MEDICATION. GOT BACK UP TO THE RECLINER AND THEN WENT BACK TO BED RABOUT MIDNIGHT. HAS RESTED QUIETLY SINCE THEN. HOURLY ROUNDING IN PROGRESS.
[2018-05-31 06:49] LABS: ABSOLUTE BASOPHILS 0.1 thou/uL (0.0-0.2); ABSOLUTE MONOCYTES 0.3 thou/uL (0.0-1.2); ABSOLUTE NEUTROPHILS 1.5 thou/uL (1.6-8.1); ATYPICAL LYMPHS 10 %
[2018-05-31 06:50] LABS: ANISOCYTOSIS 1+; PLATELET ESTIMATE ADEQUATE; POIKILOCYTOSIS 1+
[2018-05-31 07:30] VITALS: BP 126/58
[2018-05-31 11:34] VITALS: BP 126/58
--- NOTE | 2018-05-31 12:41 | NUR ---
OFELIA called [facility] admissions to follow up on dialysis referral sent on Thursday. Apparently, Osman in [facility] admissions had called OFELIA and left a message that referral had been reviewed and sent to clinic and that the referral is pending. OFELIA called pt MELODY Rodriguez in preparation for team conference and in return of his message he left to seek update, but he did not answer so SW left a message. OFELIA to continue to follow to assist with safe dc planning.
--- NOTE | 2018-05-31 16:48 | NUR ---
ASSUMED CARE AT 0730. ALERT ORIENTED PLEASANT COOPERATIVE. HX OF ESRD DEBILITY. TRANSFERS WITH SBA G BELT WALKER TO BR VOIDED X 2. ABLE TO DO HYGEINE AND CLOTHING ADJUSTMENTS. PARTICIPATING IN THERAPIES THROUGHOUT THE DAY. DENIES PAIN OR CONCERNS. BLES ELEVATED IN RECLINER WHEN NOT IN THERAPIES. MAGDI Loyola.Sol ROUNDED RE AV SHUNT PLACEMENT THURSDAY. APPETITE GOOD FEEDS SELF TAKES MEDS WITHOUT DIFFICULTY. HOURLY ROUNDED COMPLETED THIS SHIFT.
[2018-05-31 19:45] VITALS: BP 123/52
--- NOTE | 2018-05-31 19:45 | NUR ---
SITTING UP IN RECLINER WITH LEGS ELEVATED READING. DENIES DISCOMFORT. AMBULATED TO THE BATHROOM WITH SBA, GAITBELT, DOES OWN HYGIENE AND CLOTHING ADJUSTMENTS.
[2018-06-01 03:59] LABS: CALCIUM 9.1 mg/dL (8.5-10.1); PHOSPHORUS* 6.3 mg/dL (2.5-4.9); POTASSIUM 4.4 mmol/L (3.5-5.1)
[2018-06-01 04:02] LABS: CREATININE 7.7 mg/dL (0.6-1.3)
--- NOTE | 2018-06-01 06:39 | NUR ---
RESTED QUIETLY. NO COMPLAINTS VOICED. HOURLY ROUNDING IN PROGRESS.
[2018-06-01 08:02] VITALS: BP 128/43
--- NOTE | 2018-06-01 15:13 | NUR ---
ASSUMED CARE AT 0730. ALERT ORIENTED PLEASANT COOPERATIVE. HX OF ESRD AND DEBILITY. TODAY IS HER DIALYSIS DAY AFTER THERAPIES ARE COMPLETED. TRANSFERS WITH SBA G BELT WALKER AMBULATES TO BR AND DOES VOID. HAS TESSIO CATH FOR DIALYSIS RT. CHEST. PARTICIPATING IN THERAPIES THROUGHOUT THE DAY. WHILE WORKING WITH Carmen THIS P.M. SHE WAS SITTING IN RECLINER BEGAN EXPERIENCING BACK PAIN GOT UP AMBULATED TO BR AND BACK TO RECLINER, STATED THE PAIN WAS MUCH LESS. DENIED NEED FOR PRN TYLENOL. UP TO BED AND TO DIALYSIS AT 1400.
[2018-06-01 19:50] VITALS: BP 113/42
--- NOTE | 2018-06-02 01:32 | NUR ---
ASSUMED CARE @ 1935-06/01-.AWAKE IN BED W/ HOB UP.BED ALARM PUT ON @ 1935. WANTS TO SIT IN RECLINER @ 1954 W/ LE'S UP.CHAIR ALARM PUT ON.SBA FOR TOILETING & FOR ALL TRANSFERS W/ GAIT BELT & WALKER.PRN AMBIEN,PRN MELATONIN & PRN DESYREL ALL GIVEN @ 2151-PER PT'S REQUEST.BACK TO BED @ 2199 W/ HOB UP. BED ALARM PUT ON AGAIN @ 2199.SIDERAILS X3 UP.WANTS ONLY BATHROOM LIGHT ON & DOOR CLOSED @ NIGHT.ON HOURLY ROUNDS.
--- NOTE | 2018-06-02 05:11 | NUR ---
SLEPT LATE @ 2300 & SLEEPING GOOD ALL NIGHT.BRP X1 ONLY.REFUSED HS SNACK. FOR DISCHARGE TO SURGERY ON 06/0325-[id number] INSERTION SHUNT.
--- NOTE | 2018-06-02 14:16 | NUR ---
AM ASSESSMENT AND VITAL SIGNS COMPLETED DOCUMENTED. PT MOVED TO ROOM 330 THIS AFTERNOON AND WILL BE MOD I IN HER ROOM PRIOR TO DISCHARGE.
--- NOTE | 2018-06-02 16:06 | NUR ---
Team conference held. OFELIA, Dr Moyer and med student met with pt to review team conference summary and plan for pt to dc home on Thursday so pt may have almost 2 days of trialing modified independent in transitional living [address]. Pt okay with plan. Pt fistula placement cancelled for tomorrow and hope is that pt will be able to dc Thursday and have fistula placed and dc home with HH. Pt has arranged for [facility] services to assist with pt transition home, groceries, etc. SW called [facility] [phone] and checked on status of referral, SW received call back that they can accept pt on Thursday but not before...pt will have MWF chair time 6:00 am, pt to arrive at 5:30 am on Thursday and then can arrive at 5:45 am thereafter. SW to discuss with pt and will also discuss HH and arrange. Team recommending pt not drive and SW to confirm pt transportation options. SW to continue to follow to assist with finalizing safe dc plans.
--- NOTE | 2018-06-02 16:35 | NUR ---
PT MOVED TO ROOM 330 AND IS AWARE OF HER NEW ACTIVITY LEVEL OF MOD I. PT HAS ALSO BEEN INSTRUCTED TO CALL FOR ASSISTANCE IF SHE NEEDS HELP WITH ANYTHING. ALL BELONGINGS MOVED TO ROOM 330 WELL. HOURLY ROUNDING CONTINUES.
[2018-06-02 19:45] VITALS: BP 106/38
--- NOTE | 2018-06-02 19:45 | NUR ---
SITTING ON COUCH WITH LEGS ELEVATED. IN GOOD SPIRITS. DENIES DISCOMFORT. DECLINED OFFER OF A SNACK. MODIFIED INDEPENDENT IN ROOM.
[2018-06-03 04:38] LABS: HEMATOCRIT 20.2 % (37.0-47.0); MCH 29.6 pg (26.0-34.0); MCHC 34.1 g/dL (28.0-37.0); MCV 86.8 fL (80.0-100.0); MPV 6.4 fl. (7.2-11.1); RBC 2.33 mil/uL (4.20-5.00); RDW-CV 16.1 % (10.5-14.5); WBC 7.4 thou/uL (4.0-11.0)
[2018-06-03 04:40] LABS: CALCIUM 8.9 mg/dL (8.5-10.1); PHOSPHORUS* 5.2 mg/dL (2.5-4.9); POTASSIUM 4.1 mmol/L (3.5-5.1)
[2018-06-03 04:57] LABS: CREATININE 5.8 mg/dL (0.6-1.3)
[2018-06-03 05:03] LABS: HEMOGLOBIN 6.9 gm/dL (12.0-15.0)
--- NOTE | 2018-06-03 05:35 | NUR ---
REMAINS MODIFIED INDEPENDENT IN ROOM. CRITICAL HGB OF 6.[address] Mariam PARKER. ORDERS RECEIVED TO DRAW ANOTHER H/H. IF HGB < 7 A UNIT OF PRBC'S TO BE GIVEN DURING HEMODIALYSIS. HOURLY ROUNDING IN PROGRESS.
[2018-06-03 06:03] LABS: HEMOGLOBIN 7.1 gm/dL (12.0-15.0)
[2018-06-03 08:00] VITALS: BP 125/57
[2018-06-03 12:05] LABS: % SATURATION 36 % (20-39); IRON 62 ug/dL (50-175)
--- NOTE | 2018-06-03 16:02 | NUR ---
ASSUMMED CARE OF PT AT 0730, PT ALERT, MOD I IN ROOM, PT WITH THERAPY THIS AM AND COMPLAINED OF SUDDEN SEVERE BACK PAIN, NECK PAIN, HEAD PAIN, PT THEN VOMITED AND IMMEDIATELY FELT BETTER, VSS, PAIN GONE AND HAD NO FURTHER PROBLEMS THIS SHIFT,PHYSICIAN AWARE OF EPISODE, PT FELT IT WAS FROM STRESS SHE IS CONCERNED ABOUT DISCHARGING TOMORROW, BUT HAS HER RIDE SET UP SO FEELS MUCH BETTER, PT TAKING FOOD AND FLUIDS WELL, PARTICIPATED IN ALL THERAPIES, VOID PER TOILET, DIALYSIS ACCESS INTACT, TO DIALYSIS AT 1500, ASSESSMENT COMPLETE, HOURLY ROUNDING COMPLETE, WILL CONTINUE TO MONITOR.
[2018-06-03 20:22] VITALS: BP 79/38
--- NOTE | 2018-06-04 05:15 | NUR ---
ASSUMED PT CARE AT 1930. PT SITTING UP IN RECLINER AT SHIFT CHANGE. PT SLOW TO RESPOND TO INITIAL QUESTIONS, BLOOD SUGAR 112, BLOOD PRESSURE 79/38. PT GIVEN GERARD CRACKERS SNACK. PER PT SHE HAD GONE TOO LONG WITHOUT EATING WHILE IN DIALYSIS. DENIED PAIN. TOOK PILLS WHOLE WITH WATER WITHOUT DIFFICULTY. DIALYSIS ACCESS INTACT. PT TO HAVE DIALYSIS THIS MORNING PRIOR TO DISCHARGE AT 1400. PT MOD I IN ROOM, STATED SHE WOULD USE HER WALKER TO AMBULATE TO BATHROOM TO VOID. CALL LIGHT AND FREQUENTLY USED ITEMS WITHIN REACH. HOURLY ROUNDING IN PROGRESS, WILL CONTINUE TO MONITOR.
[2018-06-04 06:42] LABS: HEMATOCRIT 21.9 % (37.0-47.0); HEMOGLOBIN 7.4 gm/dL (12.0-15.0); MCH 28.9 pg (26.0-34.0); MCHC 33.7 g/dL (28.0-37.0); MPV 6.4 fl. (7.2-11.1); RBC 2.55 mil/uL (4.20-5.00); RDW-CV 16.1 % (10.5-14.5); WBC 5.9 thou/uL (4.0-11.0)
[2018-06-04 06:45] LABS: CALCIUM 9.2 mg/dL (8.5-10.1); POTASSIUM 4.1 mmol/L (3.5-5.1)
[2018-06-04 06:46] LABS: CREATININE 3.7 mg/dL (0.6-1.3)
[2018-06-04 08:00] VITALS: BP 94/52
[2018-06-04] MEDS ORDERED: CALCIUM ACETAT667 MG PO (11:52)
[2018-06-04] MEDS ORDERED: NEPHROCAPS SOFT1 CAP PO (12:00)
[2018-06-04 12:26] VITALS: BP 126/58
--- NOTE | 2018-06-04 12:35 | NUR ---
SW met with pt to confirm dc plans for today. Pt to dc home alone. Pt to have in home private duty care services for transportation and other assistance as needed through pt choice of [facility]. OFELIA discussed services with pt and SW arranged and faxed orders to pt choice [facility] ph [phone] fax [phone]. SW received confirmation of pt new OP dialysis arranged at [facility] location beginning on Wednesday 06/07 at 6:00 chair time MWF; pt to arrive at 5:30 on Thu time and then subsequent time arrive at 5:45. Pt arranged a ride to transport her home at 3:00 pm today.
[2018-06-04] MEDS ORDERED: VITAMIN D1000 UNI1 PO (12:56)
[2018-06-04] MEDS ORDERED: CYANOCOBAL1000 MCG/1 IM (12:57)
[2018-06-04] MEDS ORDERED: GABAPENTIN 100100 MG PO (12:59)
[2018-06-04] MEDS ORDERED: THERAGRAN-M PR1 EAC1 PO (13:00)
[2018-06-04] MEDS ORDERED: MIRALAX17 GM PO (13:02)
[2018-06-04] MEDS ORDERED: MELATONIN5 M4 PO (14:22)
--- NOTE | 2018-06-04 15:44 | NUR ---
ASSUMMED CARE OF PT AT 0730, PT ALERT AND ORIENTED, PT DENIES PAIN, VERY NERVOUS ABOUT DISCHARGE FOR LATER TODAY, DIALYSIS COMPLETE THIS AM, PARTICIPATED IN ALL THERAPIES, HOURLY ROUNDING COMPLETED, ASSESSMENT COMPLETE, ORDERS FOR DISCHARGE OBTAINED, PT NEEDS TO FIND PCP, INFORMATION GIVEN , PT REQUESTED ALL HER MEDS BE CALLED INTO PHARMACY, CALLED TO [facility] IN [place], PT VERY CONCERNED ABOUT ALL OF HER SLEEPING MEDS, PT EDUCATED ABOUT SIDE EFFECTS OF THE SLEEPING MEDS AND SHE SHOULD ONLY TAKE IF UNABLE TO SLEEP NEEDED, DISCUSSED FALL RISK, NO DRIVING, ALTHOUGH PT STATED SHE COULD DRIVE AND WOULD BE DRIVING, AGAIN EMPHASIZED THE IMPORTANCE OF NOT DRIVING, HOME HEALTH, WHEN TO CALL PHYSICIAN AND IMPORTANCE OF GETTING ESTABLISHED WITH NEW PCP SOON POSSIBLE, DIALYSIS, PT STATES SHE UNDERSTANDS, QUESTIONS ANSWERED, PT EXCORTED TO MAIN ENTRANCE WITH TRANSFER COMPANY AND STAFF WITH BELONGINGS, WALKER SENT HOME WITH PT AND DISCHARGE PACKET GIVEN TO PT.
== END 2018-06-04 15:00 | disposition home health service (06) | DRG 947 ==
LOC: M.REH 17:16
PROVIDERS: Family Medicine; Internal Medicine; Internal Medicine Nephrology; ADMIT Physical Medicine & Rehabilitation
PROC: 5A1D70Z Performance of Urinary Filtration, Intermittent, Less than 6 Hours Per Day (ICD-10-PCS; principal; 2018-05-21)
PROC: 5A1D70Z Performance of Urinary Filtration, Intermittent, Less than 6 Hours Per Day (ICD-10-PCS; 2018-05-22)
PROC: 5A1D70Z Performance of Urinary Filtration, Intermittent, Less than 6 Hours Per Day (ICD-10-PCS; 2018-05-25)
PROC: 5A1D70Z Performance of Urinary Filtration, Intermittent, Less than 6 Hours Per Day (ICD-10-PCS; 2018-05-29)
PROC: 5A1D70Z Performance of Urinary Filtration, Intermittent, Less than 6 Hours Per Day (ICD-10-PCS; 2018-06-01)
PROC: 5A1D70Z Performance of Urinary Filtration, Intermittent, Less than 6 Hours Per Day (ICD-10-PCS; 2018-06-03)
PROC: 5A1D70Z Performance of Urinary Filtration, Intermittent, Less than 6 Hours Per Day (ICD-10-PCS; 2018-06-04)
DX: R53.81 Other malaise (principal); N18.6 End stage renal disease; C85.10 Unspecified B-cell lymphoma, unspecified site; D69.6 Thrombocytopenia, unspecified; E03.9 Hypothyroidism, unspecified; D63.0 Anemia in neoplastic disease; Z99.2 Dependence on renal dialysis; Z90.49 Acquired absence of other specified parts of digestive tract; Z90.2 Acquired absence of lung [part of]; F17.210 Nicotine dependence, cigarettes, uncomplicated; Z80.8 Family history of malignant neoplasm of other organs or systems; Z82.49 Family history of ischemic heart disease and other diseases of the circulatory system

== ENCOUNTER 2018-06-15 10:50 | Observation (INO) | payer MEDICARE ==
--- NOTE | ~2018-06-15 | CON ---
[address] [address] CONSULTATION Name: GONZALESGLENN Room: [address] Dariela#: [id number] Admission: 06/15/18 Attend Phys: Ella Delcid MD Discharge: Date of : 36 Report #: [id number] THIS REPORT FOR: //name// CC: Valdez Delcid DATE OF SERVICE: 06/15/2018 REQUESTING PHYSICIAN: Dr. Delcid REASON FOR CONSULTATION: Assist in providing dialysis. HISTORY OF PRESENT ILLNESS: The patient is a very pleasant 82-year-old female with medical history significant for end-stage renal disease, anemia, and history of lymphoma, followed by Dr. Lynn. She presents for creation of AV fistula. She was found to be anemic with hemoglobin of 6.7, so her surgery was canceled and she is admitted for transfusion. PAST MEDICAL HISTORY: As I mentioned earlier. SOCIAL HISTORY: No current tobacco or alcohol abuse. FAMILY HISTORY: Noncontributory. MEDICATIONS PRIOR TO ADMISSION: Reviewed. REVIEW OF SYSTEMS: No chest pain, no fever, no chills. She does have mild shortness of breath. PHYSICAL EXAMINATION: GENERAL: Awake and alert. VITAL SIGNS: Blood pressure reviewed. HEENT: Pupils are round. NECK: Supple. LUNGS: Clear to auscultation bilaterally. CARDIOVASCULAR: Regular rate. ABDOMEN: Soft. LOWER EXTREMITIES: No edema. LABORATORY RESULT: Hemoglobin is 6.6, potassium 5.0, sodium 132, BUN 25, creatinine 4.5. ASSESSMENT: An 82-year-old female with end-stage renal disease and anemia. PLAN: 1[place] [address] CONSULTATION Name: GLENN GONZALES [address]#: [id number] Admission: 06/15/18 Attend Phys: Ella Delcid MD Discharge: Date of : 36 Report #: [id number] 2. Transfuse. 3. Dialysis in the morning. By: [id number] Fernandes MD /nt
[~2018-06-15 10:50] MED LIST changes: +CALCIUM ACETAT667 MG PO; +CYANOCOBAL1000 MCG/1 IM; +GABAPENTIN 100100 MG PO; +MELATONIN5 M4 PO; +NEPHROCAPS SOFT1 CAP PO; +THERAGRAN-M PR1 EAC1 PO; +VITAMIN D1000 UNI1 PO
[2018-06-15 11:51] LABS: MCH 29.4 pg (26.0-34.0); MCHC 33.2 g/dL (28.0-37.0); MCV 88.7 fL (80.0-100.0); MPV 6.2 fl. (7.2-11.1); RBC 2.23 mil/uL (4.20-5.00); WBC 4.3 thou/uL (4.0-11.0)
[2018-06-15 11:55] LABS: HEMATOCRIT 19.8 % (37.0-47.0); HEMOGLOBIN 6.6 gm/dL (12.0-15.0)
[2018-06-15 11:56] LABS: CALCIUM 9.5 mg/dL (8.5-10.1); CREATININE 4.5 mg/dL (0.6-1.3)
[2018-06-15 14:41] VITALS: BP 144/78; BP 145/62; BP 145/68; BP 148/65; BP 149/62
--- NOTE | 2018-06-15 16:35 | NUR ---
PT TRANSFERRED TO ROOM 106 FROM THE PACU VIA BED. REPORT GIVEN TO KINA JEWELL. ALL BELONGINGS SENT W/PT.
[2018-06-15 19:30] VITALS: BP 130/59
--- NOTE | 2018-06-15 19:46 | NUR ---
PATIENT REMAINED ALERT AND ORIENTED X'S 4. VITAL SIGNS AND SPO2 STABLE. BLOOD TRANSFUSION COMPLETED, PATIENT TOLERATED WITHOUT ISSUE. TOLERATED DIET, NO NAUSEA AND VOMITING. VOIDED WITHOUT ISSUE. COMPLETED HOURLY ROUNDING. CALL LIGHT WITHIN REACH. WILL CONTINUE TO MONITOR.
[2018-06-15 20:48] LABS: HEMATOCRIT 22.7 % (37.0-47.0); HEMOGLOBIN 7.7 gm/dL (12.0-15.0)
--- NOTE | 2018-06-15 20:57 | NUR ---
inital assesment completed at 1930. pt voiced ongoing anxiety and shortness of air. pt's o2 sat 100% on room air. dr botello notified. recieved order for xanax. post transfusuin H&H reported to dr botello. no transfusion needed.
[2018-06-16 04:54] LABS: HEMATOCRIT 21.5 % (37.0-47.0); HEMOGLOBIN 7.4 gm/dL (12.0-15.0); MCH 29.9 pg (26.0-34.0); MCHC 34.3 g/dL (28.0-37.0); MCV 87.4 fL (80.0-100.0); MPV 6.4 fl. (7.2-11.1); RBC 2.46 mil/uL (4.20-5.00); RDW-CV 16.4 % (10.5-14.5); WBC 5.1 thou/uL (4.0-11.0)
[2018-06-16 05:33] LABS: ALBUMIN 2.1 g/dL (3.4-5.0); CALCIUM 8.9 mg/dL (8.5-10.1); PHOSPHORUS* 4.7 mg/dL (2.5-4.9); POTASSIUM 5.6 mmol/L (3.5-5.1)
[2018-06-16 05:40] LABS: CREATININE 5.5 mg/dL (0.6-1.3)
--- NOTE | 2018-06-16 05:57 | NUR ---
PT PROGRESSING TOWARD GOALS DURING SHIFT. PT RECIEVED BLOOD TRANSFUSION YESTERDAY FOR HGB 6.6. RESULTS CALLED TO DR PARKER LAST NIGHT POST TRANSFUSION LAB RESULTS. PT'S VITAL SIGNS WITHIN NORMAL LIMITS. WILL CONTINUE TO MONITOR.
--- NOTE | 2018-06-16 06:25 | NUR ---
pt reports sleeping much better last night. pt reports waking up at times during night and being able to go back to sleep. pt states xanax did relive anxiety. no ambien or melatonin given at hs.
[2018-06-16 07:20] VITALS: BP 138/55
[2018-06-16 10:16] VITALS: BP 128/53; BP 152/77; BP 155/88; BP 164/81
[2018-06-16 12:20] VITALS: BP 138/55
--- NOTE | 2018-06-16 16:14 | NUR ---
ASSUMED CARE OF PATIENT AT APPRPOX 0730. ALERT AND ORIENTED X4. ASSESSMENT COMPLETED AND CHARTED. VSS ON ROOM AIR. NO COMPLAINTS OF PAIN, NAUSEA, OR SOA. PATIENT UP TO DIALYSIS AT APPROX 1000 AND RETURNED ATAPPROX 1400. PATIENT DISCHARGED AT 1550 WITH ALL PERSONAL BELONGING AND DISCHARGE INFORMATION.
[2018-06-18] MEDS ORDERED: NORCO 5-325 TA1 EACH PO ×2 (14:43)
== END 2018-06-16 15:50 | disposition home or self-care (01) ==
LOC: M.SUR 10:50 → M.ORTHSURG 12:32 → M.TBA 12:32 → M.SUR 14:09 → M.ORTHSURG 16:12
PROVIDERS: Student in an Organized Health Care Education/Training Program; ADMIT Internal Medicine
DX: D63.0 Anemia in neoplastic disease (principal); C85.10 Unspecified B-cell lymphoma, unspecified site; D69.6 Thrombocytopenia, unspecified; E03.9 Hypothyroidism, unspecified; R53.81 Other malaise; N18.6 End stage renal disease; N17.9 Acute kidney failure, unspecified; Z79.899 Other long term (current) drug therapy

== ENCOUNTER → 2018-06-18 | Day surgery (SDC) | payer MEDICARE ==
[~2018-06-18] MED LIST changes: +NORCO 5-325 TA1 EACH PO
--- NOTE | ~2018-06-18 | OP ---
[address] [address] OPERATIVE REPORT Name: GLENN GONZALES Room: [facility]#: [id number] Admission: 06/18/18 Attend Phys: Raffy Esquivel DO Discharge: Date of : 36 Report #: [id number] THIS REPORT FOR: //name// CC: Valdez Esquivel DATE OF SERVICE: 06/18/2018 PREOPERATIVE DIAGNOSIS: End-stage renal disease. POSTOPERATIVE DIAGNOSIS: End-stage renal disease. OPERATION: Creation of left brachiobasilic arteriovenous fistula. SURGEON: Raffy Esquivel DO. ADULT BASIC EDUCATION MANAGER: Brandt Schuler, PGY3. ANESTHESIA: Sedation local. ESTIMATED BLOOD LOSS: 25 mL. FLUIDS: About a 100 mL of crystalloid. URINE OUTPUT: None. SPECIMENS: None. IMPLANTS: None. COMPLICATIONS: None. FINDINGS: On ultrasound, her left basilic vein appeared to be about 4-5 mm in diameter and suitable for autogenous access, easily dilated up to 5 mm with the coronary dilator. At completion of the fistula, there was good thrill within the fistula, had good radial and ulnar artery Doppler signals that augmented with fistula compression. CLINICAL HISTORY: The patient is an 82-year-old woman with end-stage renal disease, currently dialyzing through a right IJ tunneled dialysis catheter. She presents today for access creation. DETAILS OF PROCEDURE: After informed consent was obtained, the patient was taken to the angio suite, placed on the angio bed in the supine position. She was administered sedation by anesthesia team at their discretion. The left upper extremity was prepped and draped in the usual sterile fashion. Full [address] [address] OPERATIVE REPORT Name: GONZALES,GLENN Yovanny Room: [facility].#: [id number] Admission: 06/18/18 Attend Phys: Raffy Esquivel DO Discharge: Date of : 36 Report #: [id number] timeout was performed by identifying correct patient and procedure. Next, a transverse incision made on the medial aspect of the left upper inner arm near the antecubital fossa after anesthetizing the skin and subcutaneous tissues with lidocaine anesthetic. Dissection was carried down through skin and subcutaneous tissues, both sharp and electrocautery. The basilic vein was identified, was circumferentially mobilized proximally and distally and controlled with Silastic vessel loop. There was one branch bifurcated that I ligated and divided between silk ties. I then dissected out the brachial artery, controlled this proximally and distally with Silastic vessel loops in Kee fashion. I administered 5000 units of intravenous heparin. This was allowed to circulate for 3 minutes. I then transected the vein distally, ligated the stump with a 2-0 silk suture ligature and then tailored the vein fried. I then serially dilated the basilic vein with coronary dilators dilated up to 4.5 mm without resistance. I then flushed with heparinized saline, marked to prevent axial rotation, occluded with a bulldog clamp. I then occluded the brachial artery, made a longitudinal arteriotomy extended with Kee scissors. I then performed end-to-side anastomosis with a running 6-0 Prolene suture. Prior to completion of the suture line, the vein was allowed to backbleed and the artery was allowed to fore and backbleed and flushed with heparinized saline. I then completed the suture line, restored flow first up the fistula and then distally to the hand. She had good radial and ulnar artery Doppler signals that augmented with fistula compression, had a good bruit in the upper arm that augmented with fistula compression as well. At this point, I satisfied with the result, the heparin was then partially reversed with 40 mg protamine. The wound was irrigated with antibiotic solution. Once hemostasis was assured, it was closed in layers with 3-0 Vicryl and 4-0 Monocryl on the skin and Dermabond was applied. All sponge, sharp and instrument counts were reported as correct x 2. She tolerated the procedure well and was transferred to recovery area in stable condition. By: [id number] Esquivel DO /sonal
[2018-06-18 12:00] LABS: HEMATOCRIT 24.2 % (37.0-47.0); HEMOGLOBIN 8.2 gm/dL (12.0-15.0); MCH 29.6 pg (26.0-34.0); MCHC 33.8 g/dL (28.0-37.0); MCV 87.7 fL (80.0-100.0); RBC 2.76 mil/uL (4.20-5.00); RDW-CV 15.5 % (10.5-14.5); WBC 3.8 thou/uL (4.0-11.0)
[2018-06-18 12:11] LABS: CALCIUM 9.3 mg/dL (8.5-10.1); POTASSIUM 3.8 mmol/L (3.5-5.1)
[2018-06-18 12:13] LABS: CREATININE 2.3 mg/dL (0.6-1.3)
== END | disposition home or self-care (01) ==
LOC: M.SUR 07:12
PROVIDERS: Anesthesiology
DX: N18.6 End stage renal disease (principal); D64.9 Anemia, unspecified; Z79.899 Other long term (current) drug therapy